=== PATIENT | female | born 1945 | race Caucasian/White ===

== ENCOUNTER 2021-02-03 07:54 | Emergency (ER) | payer MEDICARE ==
[2021-02-03 08:14] VITALS: PULSE 83
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
[2021-02-03 08:55] LABS: ANION GAP 14.2 mEq/L (7-13)
[2021-02-03] MEDS ORDERED: Ondansetron 4 MG/2 ML SDV IVPUSH ONE (08:58)
[2021-02-03] MEDS ORDERED: Pantoprazole 40 MG Vial IVPUSH ONE (09:02)
[2021-02-03] MEDS ORDERED: Pantoprazole 40 MG in Sodium Chloride 0.9% 100 ML IV SCH ×4 (09:15)
[2021-02-03 09:26] VITALS: BP 162/86
== END 2021-02-03 10:09 ==
LOC: DL.ED 07:54
DX: K92.2 Gastrointestinal hemorrhage, unspecified (principal); J44.9 Chronic obstructive pulmonary disease, unspecified; I12.9 Hypertensive chronic kidney disease with stage 1 through stage 4 chronic kidney disease, or unspecified chronic kidney disease; N18.9 Chronic kidney disease, unspecified; E66.9 Obesity, unspecified; Z68.41 Body mass index [BMI] 40.0-44.9, adult; Z86.73 Personal history of transient ischemic attack (TIA), and cerebral infarction without residual deficits; Z79.02 Long term (current) use of antithrombotics/antiplatelets; Z79.899 Other long term (current) drug therapy; Z88.1 Allergy status to other antibiotic agents; Z88.8 Allergy status to other drugs, medicaments and biological substances; Z88.0 Allergy status to penicillin; Z20.822 Contact with and (suspected) exposure to COVID-19
CPT/HCPCS: 36415; 80053; 82150; 82272; 83605; 83690; 83735; 84443; 85025; 86140; 93005; 96365; 96375; 99285; C9113; J2405; U0002

== ENCOUNTER 2021-02-07 07:54 | Inpatient (IN) | payer MEDICARE ==
[2021-02-07 14:13] LABS: ANION GAP 14.7 mEq/L (7-13)
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
[2021-02-08] MEDS: Nystatin Topical Powder 30 GM Bottle TOP SCH ×3 (01:13→20:40)
[2021-02-08] MEDS ORDERED: Pantoprazole 40 MG Tab.CR **OWN MED PO SCH (06:00)
[2021-02-08] MEDS ORDERED: Potassium Chloride 10 MEQ Tab.ER **OWN MED PO SCH (08:00)
[2021-02-08] MEDS ORDERED: TRIAMTERENE HCTZ PO SCH (09:00)
[2021-02-08] MEDS ORDERED: Clopidogrel 75 MG Tab **OWN MED PO SCH (09:00)
[2021-02-08] MEDS ORDERED: Pantoprazole 40 MG Tab.CR PO SCH (09:02)
[2021-02-08] MEDS ORDERED: Hydrochlorothiazide/Triamterene 25-37.5 Tab PO SCH (09:03)
[2021-02-08] MEDS ORDERED: Clopidogrel 75 MG Tab PO SCH ×2 (09:04→10:00)
[2021-02-08] MEDS ORDERED: Potassium Chloride 10 MEQ Tab.ER PO SCH (09:05)
[2021-02-08] MEDS: Acetaminophen 500 MG Tab PO PRN (09:57)
[2021-02-08] MEDS: Carboxymethylcellulose Sodium 1% Ophth Gel 0.4 ML UD EYEBOTH SCH ×2 (09:58→20:39)
[2021-02-08] MEDS: Cholecalciferol (Vitamin D3) 25 MCG Tab PO SCH (09:58)
[2021-02-08] MEDS: Furosemide 40 MG Tab PO SCH (09:59)
[2021-02-08] MEDS: Potassium Chloride 10 MEQ Tab.ER PO SCH ×2 (10:03→17:13)
[2021-02-08] MEDS: Hydrochlorothiazide/Triamterene 25-37.5 Tab PO SCH (10:04)
[2021-02-08 10:40] LABS: ANION GAP 12.7 mEq/L (7-13)
[2021-02-08] MEDS ORDERED: Albuterol/Ipratropium 3.0-0.5 MG/3 ML Neb Soln INH PRN (12:00)
[2021-02-08] MEDS: Clopidogrel 75 MG Tab PO SCH (12:26)
[2021-02-09] MEDS: Acetaminophen 500 MG Tab PO PRN ×3 (00:46→20:33)
[2021-02-09] MEDS: Pantoprazole 40 MG Tab.CR PO SCH (05:26)
[2021-02-09] MEDS: Furosemide 40 MG Tab PO SCH (08:54)
[2021-02-09] MEDS: Fluticasone Propionate Nasal Spray 16 GM Bottle NASBOTH SCH (08:54)
[2021-02-09] MEDS: Hydrochlorothiazide/Triamterene 25-37.5 Tab PO SCH (08:54)
[2021-02-09] MEDS: Carboxymethylcellulose Sodium 1% Ophth Gel 0.4 ML UD EYEBOTH SCH ×2 (08:55→20:09)
[2021-02-09] MEDS: Cholecalciferol (Vitamin D3) 25 MCG Tab PO SCH (08:56)
[2021-02-09] MEDS: Potassium Chloride 10 MEQ Tab.ER PO SCH ×2 (08:56→17:41)
[2021-02-09] MEDS: Aspirin 81 MG Tab.EC PO SCH (08:56)
[2021-02-09] MEDS: Nystatin Topical Powder 30 GM Bottle TOP SCH ×2 (08:57→20:10)
[2021-02-09 09:13] LABS: ANION GAP 12.6 mEq/L (7-13)
[2021-02-09] MEDS: Clopidogrel 75 MG Tab PO SCH (12:21)
--- NOTE | 2021-02-09 12:21 | MR ---
PROCEDURE INFORMATION: Exam: MRA Head Without Contrast; Arteriography Exam date and time: 02/09/2021 10:09 AM Age: 75 years old Clinical indication: Weakness; Additional info: Recent stroke, unknown etiology TECHNIQUE: Imaging protocol: Magnetic resonance angiography head without contrast. Exam focused on the arteries. COMPARISON: No relevant prior studies available. FINDINGS: ANTERIOR CIRCULATION: Right internal carotid artery: Intracranial segment is patent with no significant stenosis. No aneurysm. Right middle cerebral artery: No occlusion or significant stenosis. No aneurysm. Right anterior cerebral artery: No occlusion or significant stenosis. No aneurysm. Left internal carotid artery: Intracranial segment is patent with no significant stenosis. No aneurysm. Left middle cerebral artery: No occlusion or significant stenosis. No aneurysm. Left anterior cerebral artery: No occlusion or significant stenosis. No aneurysm. POSTERIOR CIRCULATION: Right vertebral artery: No occlusion or significant stenosis. No aneurysm. Left vertebral artery: No occlusion or significant stenosis. No aneurysm. Basilar artery: No occlusion or significant stenosis. No aneurysm. Patent superior cerebellar arteries. Bilateral anterior inferior cerebellar arteries are present and appear to be dominant inferior cerebellar arteries. AICA is duplicated on left. Right posterior cerebral artery: No occlusion or significant stenosis. No aneurysm. Left posterior cerebral artery: No occlusion or significant stenosis. No aneurysm. IMPRESSION: No intracranial vascular stenosis or occlusion.
--- NOTE | 2021-02-09 12:22 | MR ---
PROCEDURE INFORMATION: Exam: MR Head Without Contrast Exam date and time: 02/09/2021 10:09 AM Age: 75 years old Clinical indication: Walking, difficulty; Additional info: Stroke TECHNIQUE: Imaging protocol: MR of the head without contrast. COMPARISON: No relevant prior studies available. FINDINGS: Brain: There is 9 mm rounded extra-axial mass in the left frontal vertex consistent with meningioma. No edema in adjacent brain. Small low FLAIR and high T2 area approximately 2 mm in left cerebellar white matter may be old infarct. The ventricles and sulci are proportionally enlarged, consistent with volume loss / atrophy. There is T2 prolongation in the cerebral white matter, consistent with microvascular disease. Man white differentiation is intact. Diffusion weighted images show no restricted diffusion or evidence of acute infarct. There is no mass effect or midline shift. There is no acute intracranial hemorrhage. There are no extra-axial fluid collections. Cerebral ventricles: Normal. No ventriculomegaly. Bones/joints: Unremarkable as visualized. Paranasal sinuses: Normal as visualized. No acute sinusitis. Mastoid air cells: No significant mastoid effusion. Orbital cavity: Unremarkable. Soft tissues: Unremarkable as visualized. Other vasculature: Flow voids in main vascular structures are visualized. IMPRESSION: 1. No evidence of acute intracranial abnormality. No evidence of acute infarction, or hemorrhage. 2. Small left frontal meningioma. 3. Atrophy and microvascular disease. 4. Given the patient's clinical history and / or findings on MRI, MRA to assess the intracranial vascular system would be appropriate.
[2021-02-09] MEDS ORDERED: Ketorolac 30 MG/ML SDV IM ONE (15:15)
[2021-02-09] MEDS ORDERED: Menthol/Methyl Salicylate 85 GM Tube TOP PRN (21:11)
[2021-02-10] MEDS: Pantoprazole 40 MG Tab.CR PO SCH ×2 (04:00→05:48)
[2021-02-10] MEDS: Acetaminophen 500 MG Tab PO PRN ×2 (04:00→10:34)
[2021-02-10 08:46] LABS: HEMOGLOBIN A1C 5.9 % (<5.7)
[2021-02-10 08:52] LABS: ANION GAP 11.7 mEq/L (7-13)
--- NOTE | 2021-02-10 09:43 | PCM.PN ---
- General Info Date of Service: 02/08/21 Admission Dx/Problem (Free Text): Admission Diagnosis/Problem Admission Diagnosis/Problem Weakness Subjective Update: Cathryn was admitted yesterday for failure to thrive at home, and severe mobility limitations. After admitting her, and doing full evaluations with both myself, nursing and physical therapy, it is very clear that Cathryn will be in the hospital here for quite a length of time. She has had an obvious stroke, causing a right-sided facial droop, for which we do not have any etiology. Cathryn tells me that she has multiple TIAs, and that she never went to the hospital for this one that caused her facial droop. Nursing reports that she has been unable to take care of most of her ADLs, is really not even able to transfer to the commode - Patient Data Vitals - Most Recent: Last Vital Signs Temp 97.8 F 02/10/21 02:36 Pulse 109 H 02/10/21 02:36 Resp 20 02/10/21 02:36 BP 119/83 02/10/21 02:36 Pulse Ox 94 L 02/10/21 02:36 Weight - Most Recent: 241 lb 9.6 oz I&O - Last 24 Hours: Intake & Output 02/09/21 02/10/21 02/10/21 22:59 06:59 14:59 Intake Total 480 100 Balance 480 100 Lab Results Last 24 Hours: Laboratory Results - last 24 hr 02/10/21 02/10/21 02/10/21 Range/Units 08:27 08:27 08:27 WBC 14.0 H (5.0-10.0) 10^3/uL RBC 4.79 (4.2-5.4) 10^6/uL Hgb 14.4 (12.0-16.0) g/dL Hct 45.4 (37.0-47.0) % MCV 94.8 (80-100) fL MCH 30.1 (27.0-34.0) pg MCHC 31.7 L (33.0-35.0) g/dL Plt Count 410 (150-450) 10^3/uL Neut % (Auto) 70.4 (42.2-75.2) % Lymph % (Auto) 17.0 L (20.5-50.1) % [place] % (Auto) 9.6 H (2-8) % Eos % (Auto) 2.6 (1.0-3.0) % Baso % (Auto) 0.4 (0.0-1.0) % Add Manual Diff Sodium 140 (136-145) mmol/L Potassium 3.7 (3.5-5.1) mmol/L Chloride 99 (98-107) mmol/L Carbon Dioxide 33 H (21-32) mmol/L Anion Gap 11.7 (7-13) mEq/L BUN 24 H (7-18) mg/dL Creatinine 1.25 H (0.55-1.02) mg/dL Est Cr Clr Drug Dosing 27.93 mL/min Estimated GFR (MDRD) 42 BUN/Creatinine Ratio 19.2 (No establ ref range) Glucose 107 H (70-99) mg/dL Hemoglobin A1c 5.9 H (<5.7) % Calcium 9.3 (8.5-10.1) mg/dL Total Bilirubin 1.4 H (0.2-1.0) mg/dL AST 26 (15-37) U/L ALT 33 (14-59) U/L Alkaline Phosphatase 96 (46-116) U/L Total Protein 7.4 (6.4-8.2) g/dL Albumin 2.5 L (3.4-5.0) g/dL Globulin 4.9 Albumin/Globulin Ratio 0.51 Med Orders - Current: Current Medications Acetaminophen (Acetaminophen 500 Mg Tab) 500 mg PO Q6H PRN PRN Reason: Pain (mild 1-3) Last Admin: 02/10/21 04:00 Dose: 500 mg Documented by: Albuterol/Ipratropium (Albuterol/Ipratropium 3.0-0.5 Mg/3 Ml Neb Soln) 3 ml INH Q4HR PRN PRN Reason: Wheezing Artificial Tears (Carboxymethylcellulose Sodium 1% Ophth Gel 0.4 Ml Ud) 0 each EYEBOTH BID [facility] Last Admin: 02/09/21 20:09 Dose: 1 each Documented by: Aspirin (Aspirin 81 Mg Tab.Ec) 81 mg PO WITHBREAKFAST [facility] Last Admin: 02/09/21 08:56 Dose: 81 mg Documented by: Cholecalciferol (Cholecalciferol (Vitamin D3) 25 Mcg Tab) 25 mcg PO DAILY [facility] Last Admin: 02/09/21 08:56 Dose: 25 mcg Documented by: Clopidogrel Bisulfate (Clopidogrel 75 Mg Tab) 75 mg PO DAILY@1200 [facility] Last Admin: 02/09/21 12:21 Dose: 75 mg Documented by: Fluticasone Propionate (Fluticasone Propionate Nasal [place] 16 Gm Bottle) 0 gm NASBOTH DAILY [facility] Last Admin: 02/09/21 08:54 Dose: 2 spray Documented by: Furosemide (Furosemide 40 Mg Tab) 40 mg PO DAILY [facility] Last Admin: 02/09/21 08:54 Dose: 40 mg Documented by: Influenza Virus Vaccine (Pharmacy To Dose - Influenza Vaccine) 1 each IM DAILY [facility] Last Admin: 02/09/21 08:56 Dose: Not Given Documented by: Methyl Salicylate (Menthol/Methyl Salicylate 85 Gm Tube) 0 gm TOP QID PRN PRN Reason: Pain (mild 1-3) Last Admin: 02/09/21 21:45 Dose: 1 applic Documented by: Nystatin (Nystatin Topical Powder 30 Gm Bottle) 0 gm TOP BID [facility] Last Admin: 02/09/21 20:10 Dose: 1 applic Documented by: Pantoprazole Sodium (Pantoprazole 40 Mg Tab.Cr) 40 mg PO ACBREAKFAST [facility] Last Admin: 02/10/21 05:48 Dose: Not Given Documented by: Potassium Chloride (Potassium Chloride 10 Meq Tab.Er) 10 meq PO BIDMEALS [facility] Last Admin: 02/09/21 17:41 Dose: 10 meq Documented by: Triamterene/Hydrochlorothiazide (Hydrochlorothiazide/Triamterene 25-37.5 Tab) 1 each PO DAILY [facility] Last Admin: 02/09/21 08:54 Dose: 1 each Documented by: Discontinued Medications Clopidogrel Bisulfate (Clopidogrel 75 Mg Tab Own Med) 75 mg PO DAILY [facility] Last Admin: 02/08/21 10:56 Dose: Not Given Documented by: Clopidogrel Bisulfate (Clopidogrel 75 Mg Tab) 75 mg PO DAILY [facility] Clopidogrel Bisulfate (Clopidogrel 75 Mg Tab) 75 mg PO DAILY [facility] Last Admin: 02/08/21 10:57 Dose: Not Given Documented by: Ketorolac Tromethamine (Ketorolac 30 Mg/Ml Sdv) 30 mg IM ONETIME ONE Stop: 02/09/21 15:16 Triamterene-Hctz 37. 5-25 Caps Own Med 1 cap PO DAILY [facility] Last Admin: 02/08/21 10:56 Dose: Not Given Documented by: Pantoprazole Sodium (Pantoprazole 40 Mg Tab.Cr Own Med) 40 mg PO ACBREAKFAST [facility] Last Admin: 02/08/21 05:43 Dose: 40 mg Documented by: Pantoprazole Sodium (Pantoprazole 40 Mg Tab.Cr) 40 mg PO ACBREAKFAST [facility] Potassium Chloride (Potassium Chloride 10 Meq Tab.Er Own Med) 10 meq PO BIDMEALS [facility] Last Admin: 02/08/21 10:55 Dose: Not Given Documented by: Potassium Chloride (Potassium Chloride 10 Meq Tab.Er) 10 meq PO BIDMEALS [facility] Triamterene/Hydrochlorothiazide (Hydrochlorothiazide/Triamterene 25-37.5 Tab) 1 each PO DAILY [facility] - Exam Physical Findings Comments:: General: Cathryn is a 75-year-old woman in no acute distress Oropharynx is clear, mucous membranes are moist Heart: Regular rate and rhythm, 1 out of 6 systolic murmur Lungs: Clear to auscultation throughout She has still that flattened nasolabial fold on the right with drooping of the right eyelid. The movement of her lower extremities and upper extremities is symmetrical although I would put her for strength at 4 out of 5 - Patient Data Lab Results Last 24 hrs: Laboratory Results - last 24 hr 02/10/21 02/10/21 02/10/21 Range/Units 08:27 08:27 08:27 WBC 14.0 H (5.0-10.0) 10^3/uL RBC 4.79 (4.2-5.4) 10^6/uL Hgb 14.4 (12.0-16.0) g/dL Hct 45.4 (37.0-47.0) % MCV 94.8 (80-100) fL MCH 30.1 (27.0-34.0) pg MCHC 31.7 L (33.0-35.0) g/dL Plt Count 410 (150-450) 10^3/uL Neut % (Auto) 70.4 (42.2-75.2) % Lymph % (Auto) 17.0 L (20.5-50.1) % [place] % (Auto) 9.6 H (2-8) % Eos % (Auto) 2.6 (1.0-3.0) % Baso % (Auto) 0.4 (0.0-1.0) % Add Manual Diff Sodium 140 (136-145) mmol/L Potassium 3.7 (3.5-5.1) mmol/L Chloride 99 (98-107) mmol/L Carbon Dioxide 33 H (21-32) mmol/L Anion Gap 11.7 (7-13) mEq/L BUN 24 H (7-18) mg/dL Creatinine 1.25 H (0.55-1.02) mg/dL Est Cr Clr Drug Dosing 27.93 mL/min Estimated GFR (MDRD) 42 BUN/Creatinine Ratio 19.2 (No establ ref range) Glucose 107 H (70-99) mg/dL Hemoglobin A1c 5.9 H (<5.7) % Calcium 9.3 (8.5-10.1) mg/dL Total Bilirubin 1.4 H (0.2-1.0) mg/dL AST 26 (15-37) U/L ALT 33 (14-59) U/L Alkaline Phosphatase 96 (46-116) U/L Total Protein 7.4 (6.4-8.2) g/dL Albumin 2.5 L (3.4-5.0) g/dL Globulin 4.9 Albumin/Globulin Ratio 0.51 Result Diagrams: 02/10/21 08:27 02/10/21 08:27 Sepsis Event Note - Evaluation Sepsis Screening Result: No Definite Risk - Focused Exam Vital Signs: Vital Signs Temp Pulse Resp BP Pulse Ox 02/10/21 02:36 97.8 F 109 H 20 119/83 94 L - Problem List & Annotations (1) Cerebrovascular accident (CVA) SNOMED Code(s): 467487306 Code(s): I63.9 - CEREBRAL INFARCTION, UNSPECIFIED Status: Acute Current Visit: Yes Qualifiers: CVA mechanism: unspecified Qualified Code(s): I63.9 - Cerebral infarction, unspecified Annotation/Comment:: Recent CVA, unknown age (2) COPD (chronic obstructive pulmonary disease) SNOMED Code(s): 37109828 Code(s): J44.9 - CHRONIC OBSTRUCTIVE PULMONARY DISEASE, UNSPECIFIED Status: Acute Current Visit: Yes (3) Essential hypertension SNOMED Code(s): 65395560 Code(s): I10 - ESSENTIAL (PRIMARY) HYPERTENSION Status: Acute Current Visit: Yes (4) Failure to thrive in adult SNOMED Code(s): 145217310 Code(s): R62.7 - ADULT FAILURE TO THRIVE Status: Acute Current Visit: Yes - Problem List Review Problem List Initiated/Reviewed/Updated: Yes - My Orders Last 24 Hours: My Active Orders 02/09/21 09:00 Fluticasone Propionate [Flonase] 0 gm NASBOTH DAILY 02/09/21 21:11 Menthol/Methyl Salicylate [Icy Hot Cream] See Dose Instructions TOP QID PRN - Plan Plan:: Assessment/Plan: 1. 75-year-old woman with severe mobility issues, and failure to thrive 2. Obvious recent cerebrovascular accident -MRI/MRA of the head scheduled for the -Until we can get a full stroke work-up on her, we will do dual antiplatelet therapy with aspirin and Plavix -Physical therapy as soon as possible to start getting her mobilized 3. Chronic obstructive pulmonary disease -Continue home medications 4. Numerous ecchymosis and skin lesions, secondary to failure to thrive and poor mobility -As above, nursing has done a full skin survey on her, they will keep a very close watch on any areas that seem to be breaking down 5. VTE prophylaxis: We will have her on dual antiplatelet therapy, will consider starting her on Lovenox prophylactic dose 6. Due to her ongoing needs, she will be discharged today from observation, and admitted to acute inpatient status
--- NOTE | 2021-02-10 09:47 | PCM.PN ---
- General Info Date of Service: 02/09/21 Admission Dx/Problem (Free Text): Admission Diagnosis/Problem Admission Diagnosis/Problem Weakness Subjective Update: Cathryn is doing well this morning. Have not made much progress in getting her moving. She was declining physical therapy quite a bit yesterday, because of severe anxiety. She has a fear that she will fall. She told us this morning "it feels like my left is not talking to my right", which sounds like she is having a lot of coordination and balance issues. MRI/MRA scheduled for today - Patient Data Vitals - Most Recent: Last Vital Signs Temp 97.8 F 02/10/21 02:36 Pulse 109 H 02/10/21 02:36 Resp 20 02/10/21 02:36 BP 119/83 02/10/21 02:36 Pulse Ox 94 L 02/10/21 02:36 Weight - Most Recent: 241 lb 9.6 oz I&O - Last 24 Hours: Intake & Output 02/09/21 02/10/21 02/10/21 22:59 06:59 14:59 Intake Total 480 100 Balance 480 100 Lab Results Last 24 Hours: Laboratory Results - last 24 hr 02/10/21 02/10/21 02/10/21 Range/Units 08:27 08:27 08:27 WBC 14.0 H (5.0-10.0) 10^3/uL RBC 4.79 (4.2-5.4) 10^6/uL Hgb 14.4 (12.0-16.0) g/dL Hct 45.4 (37.0-47.0) % MCV 94.8 (80-100) fL MCH 30.1 (27.0-34.0) pg MCHC 31.7 L (33.0-35.0) g/dL Plt Count 410 (150-450) 10^3/uL Neut % (Auto) 70.4 (42.2-75.2) % Lymph % (Auto) 17.0 L (20.5-50.1) % [place] % (Auto) 9.6 H (2-8) % Eos % (Auto) 2.6 (1.0-3.0) % Baso % (Auto) 0.4 (0.0-1.0) % Add Manual Diff Sodium 140 (136-145) mmol/L Potassium 3.7 (3.5-5.1) mmol/L Chloride 99 (98-107) mmol/L Carbon Dioxide 33 H (21-32) mmol/L Anion Gap 11.7 (7-13) mEq/L BUN 24 H (7-18) mg/dL Creatinine 1.25 H (0.55-1.02) mg/dL Est Cr Clr Drug Dosing 27.93 mL/min Estimated GFR (MDRD) 42 BUN/Creatinine Ratio 19.2 (No establ ref range) Glucose 107 H (70-99) mg/dL Hemoglobin A1c 5.9 H (<5.7) % Calcium 9.3 (8.5-10.1) mg/dL Total Bilirubin 1.4 H (0.2-1.0) mg/dL AST 26 (15-37) U/L ALT 33 (14-59) U/L Alkaline Phosphatase 96 (46-116) U/L Total Protein 7.4 (6.4-8.2) g/dL Albumin 2.5 L (3.4-5.0) g/dL Globulin 4.9 Albumin/Globulin Ratio 0.51 Med Orders - Current: Current Medications Acetaminophen (Acetaminophen 500 Mg Tab) 500 mg PO Q6H PRN PRN Reason: Pain (mild 1-3) Last Admin: 02/10/21 04:00 Dose: 500 mg Documented by: Albuterol/Ipratropium (Albuterol/Ipratropium 3.0-0.5 Mg/3 Ml Neb Soln) 3 ml INH Q4HR PRN PRN Reason: Wheezing Artificial Tears (Carboxymethylcellulose Sodium 1% Ophth Gel 0.4 Ml Ud) 0 each EYEBOTH BID [facility] Last Admin: 02/09/21 20:09 Dose: 1 each Documented by: Aspirin (Aspirin 81 Mg Tab.Ec) 81 mg PO WITHBREAKFAST [facility] Last Admin: 02/09/21 08:56 Dose: 81 mg Documented by: Cholecalciferol (Cholecalciferol (Vitamin D3) 25 Mcg Tab) 25 mcg PO DAILY [facility] Last Admin: 02/09/21 08:56 Dose: 25 mcg Documented by: Clopidogrel Bisulfate (Clopidogrel 75 Mg Tab) 75 mg PO DAILY@1200 [facility] Last Admin: 02/09/21 12:21 Dose: 75 mg Documented by: Fluticasone Propionate (Fluticasone Propionate Nasal [place] 16 Gm Bottle) 0 gm NASBOTH DAILY [facility] Last Admin: 02/09/21 08:54 Dose: 2 spray Documented by: Furosemide (Furosemide 40 Mg Tab) 40 mg PO DAILY [facility] Last Admin: 02/09/21 08:54 Dose: 40 mg Documented by: Influenza Virus Vaccine (Pharmacy To Dose - Influenza Vaccine) 1 each IM DAILY [facility] Last Admin: 02/09/21 08:56 Dose: Not Given Documented by: Methyl Salicylate (Menthol/Methyl Salicylate 85 Gm Tube) 0 gm TOP QID PRN PRN Reason: Pain (mild 1-3) Last Admin: 02/09/21 21:45 Dose: 1 applic Documented by: Nystatin (Nystatin Topical Powder 30 Gm Bottle) 0 gm TOP BID [facility] Last Admin: 02/09/21 20:10 Dose: 1 applic Documented by: Pantoprazole Sodium (Pantoprazole 40 Mg Tab.Cr) 40 mg PO ACBREAKFAST [facility] Last Admin: 02/10/21 05:48 Dose: Not Given Documented by: Potassium Chloride (Potassium Chloride 10 Meq Tab.Er) 10 meq PO BIDMEALS [facility] Last Admin: 02/09/21 17:41 Dose: 10 meq Documented by: Triamterene/Hydrochlorothiazide (Hydrochlorothiazide/Triamterene 25-37.5 Tab) 1 each PO DAILY [facility] Last Admin: 02/09/21 08:54 Dose: 1 each Documented by: Discontinued Medications Clopidogrel Bisulfate (Clopidogrel 75 Mg Tab Own Med) 75 mg PO DAILY [facility] Last Admin: 02/08/21 10:56 Dose: Not Given Documented by: Clopidogrel Bisulfate (Clopidogrel 75 Mg Tab) 75 mg PO DAILY [facility] Clopidogrel Bisulfate (Clopidogrel 75 Mg Tab) 75 mg PO DAILY [facility] Last Admin: 02/08/21 10:57 Dose: Not Given Documented by: Ketorolac Tromethamine (Ketorolac 30 Mg/Ml Sdv) 30 mg IM ONETIME ONE Stop: 02/09/21 15:16 Triamterene-Hctz 37. 5-25 Caps Own Med 1 cap PO DAILY [facility] Last Admin: 02/08/21 10:56 Dose: Not Given Documented by: Pantoprazole Sodium (Pantoprazole 40 Mg Tab.Cr Own Med) 40 mg PO ACBREAKFAST [facility] Last Admin: 02/08/21 05:43 Dose: 40 mg Documented by: Pantoprazole Sodium (Pantoprazole 40 Mg Tab.Cr) 40 mg PO ACBREAKFAST [facility] Potassium Chloride (Potassium Chloride 10 Meq Tab.Er Own Med) 10 meq PO BIDMEALS [facility] Last Admin: 02/08/21 10:55 Dose: Not Given Documented by: Potassium Chloride (Potassium Chloride 10 Meq Tab.Er) 10 meq PO BIDMEALS [facility] Triamterene/Hydrochlorothiazide (Hydrochlorothiazide/Triamterene 25-37.5 Tab) 1 each PO DAILY [facility] - Exam Physical Findings Comments:: General: Cathryn is a 75-year-old woman in no acute distress Oropharynx is clear, mucous membranes are moist The facial droop as previously described is stable Neck: Supple, no lymphadenopathy Heart: Regular rate and rhythm, 1 out of 6 systolic murmur Lungs: Clear to auscultation throughout - Patient Data Lab Results Last 24 hrs: Laboratory Results - last 24 hr 02/10/21 02/10/21 02/10/21 Range/Units 08:27 08:27 08:27 WBC 14.0 H (5.0-10.0) 10^3/uL RBC 4.79 (4.2-5.4) 10^6/uL Hgb 14.4 (12.0-16.0) g/dL Hct 45.4 (37.0-47.0) % MCV 94.8 (80-100) fL MCH 30.1 (27.0-34.0) pg MCHC 31.7 L (33.0-35.0) g/dL Plt Count 410 (150-450) 10^3/uL Neut % (Auto) 70.4 (42.2-75.2) % Lymph % (Auto) 17.0 L (20.5-50.1) % [place] % (Auto) 9.6 H (2-8) % Eos % (Auto) 2.6 (1.0-3.0) % Baso % (Auto) 0.4 (0.0-1.0) % Add Manual Diff Sodium 140 (136-145) mmol/L Potassium 3.7 (3.5-5.1) mmol/L Chloride 99 (98-107) mmol/L Carbon Dioxide 33 H (21-32) mmol/L Anion Gap 11.7 (7-13) mEq/L BUN 24 H (7-18) mg/dL Creatinine 1.25 H (0.55-1.02) mg/dL Est Cr Clr Drug Dosing 27.93 mL/min Estimated GFR (MDRD) 42 BUN/Creatinine Ratio 19.2 (No establ ref range) Glucose 107 H (70-99) mg/dL Hemoglobin A1c 5.9 H (<5.7) % Calcium 9.3 (8.5-10.1) mg/dL Total Bilirubin 1.4 H (0.2-1.0) mg/dL AST 26 (15-37) U/L ALT 33 (14-59) U/L Alkaline Phosphatase 96 (46-116) U/L Total Protein 7.4 (6.4-8.2) g/dL Albumin 2.5 L (3.4-5.0) g/dL Globulin 4.9 Albumin/Globulin Ratio 0.51 Result Diagrams: 02/10/21 08:27 02/10/21 08:27 Sepsis Event Note - Evaluation Sepsis Screening Result: No Definite Risk - Focused Exam Vital Signs: Vital Signs Temp Pulse Resp BP Pulse Ox 02/10/21 02:36 97.8 F 109 H 20 119/83 94 L - Problem List & Annotations (1) Cerebrovascular accident (CVA) SNOMED Code(s): 357825033 Code(s): I63.9 - CEREBRAL INFARCTION, UNSPECIFIED Status: Acute Current Visit: Yes Qualifiers: CVA mechanism: unspecified Qualified Code(s): I63.9 - Cerebral infarction, unspecified Annotation/Comment:: Recent CVA, unknown age (2) COPD (chronic obstructive pulmonary disease) SNOMED Code(s): 43509010 Code(s): J44.9 - CHRONIC OBSTRUCTIVE PULMONARY DISEASE, UNSPECIFIED Status: Acute Current Visit: Yes (3) Essential hypertension SNOMED Code(s): 69977644 Code(s): I10 - ESSENTIAL (PRIMARY) HYPERTENSION Status: Acute Current Visit: Yes (4) Failure to thrive in adult SNOMED Code(s): 233885337 Code(s): R62.7 - ADULT FAILURE TO THRIVE Status: Acute Current Visit: Yes - Problem List Review Problem List Initiated/Reviewed/Updated: Yes - My Orders Last 24 Hours: My Active Orders 02/09/21 09:00 Fluticasone Propionate [Flonase] 0 gm NASBOTH DAILY 02/09/21 21:11 Menthol/Methyl Salicylate [Icy Hot Cream] See Dose Instructions TOP QID PRN - Plan Plan:: Assessment/Plan: 1. 75-year-old woman with severe mobility issues, and failure to thrive 2. Obvious recent cerebrovascular accident -MRI/MRA of the head scheduled for today -Continue dual antiplatelet therapy with Plavix and aspirin -Physical therapy will continue to work with her to try to get her transferring herself and mobilized 3. Chronic obstructive pulmonary disease -Continue home medications 4. Numerous ecchymosis and skin lesions, secondary to failure to thrive and poor mobility -As above, nursing has done a full skin survey on her, they will keep a very close watch on any areas that seem to be breaking down 5. VTE prophylaxis: We will have her on dual antiplatelet therapy, will consider starting her on Lovenox prophylactic dose
--- NOTE | 2021-02-10 09:48 | PCM.PN ---
- General Info Date of Service: 02/10/21 Admission Dx/Problem (Free Text): Admission Diagnosis/Problem Admission Diagnosis/Problem Weakness Subjective Update: Cathryn is overall stable. Physical therapy reports they were able to do a little bit of toe-touch and transferring yesterday, but have not made much headway yet. Nursing reports that they are assisting her with 100% of her ADLs. MRI/MRA of the brain yesterday showed small older infarct in the left cereb ellum, which would explain quite a bit of her balance and stability issues - Patient Data Vitals - Most Recent: Last Vital Signs Temp 97.8 F 02/10/21 02:36 Pulse 109 H 02/10/21 02:36 Resp 20 02/10/21 02:36 BP 119/83 02/10/21 02:36 Pulse Ox 94 L 02/10/21 02:36 Weight - Most Recent: 241 lb 9.6 oz I&O - Last 24 Hours: Intake & Output 02/09/21 02/10/21 02/10/21 22:59 06:59 14:59 Intake Total 480 100 Balance 480 100 Lab Results Last 24 Hours: Laboratory Results - last 24 hr 02/10/21 02/10/21 02/10/21 Range/Units 08:27 08:27 08:27 WBC 14.0 H (5.0-10.0) 10^3/uL RBC 4.79 (4.2-5.4) 10^6/uL Hgb 14.4 (12.0-16.0) g/dL Hct 45.4 (37.0-47.0) % MCV 94.8 (80-100) fL MCH 30.1 (27.0-34.0) pg MCHC 31.7 L (33.0-35.0) g/dL Plt Count 410 (150-450) 10^3/uL Neut % (Auto) 70.4 (42.2-75.2) % Lymph % (Auto) 17.0 L (20.5-50.1) % Riley % (Auto) 9.6 H (2-8) % Eos % (Auto) 2.6 (1.0-3.0) % Baso % (Auto) 0.4 (0.0-1.0) % Add Manual Diff Sodium 140 (136-145) mmol/L Potassium 3.7 (3.5-5.1) mmol/L Chloride 99 (98-107) mmol/L Carbon Dioxide 33 H (21-32) mmol/L Anion Gap 11.7 (7-13) mEq/L BUN 24 H (7-18) mg/dL Creatinine 1.25 H (0.55-1.02) mg/dL Est Cr Clr Drug Dosing 27.93 mL/min Estimated GFR (MDRD) 42 BUN/Creatinine Ratio 19.2 (No establ ref range) Glucose 107 H (70-99) mg/dL Hemoglobin A1c 5.9 H (<5.7) % Calcium 9.3 (8.5-10.1) mg/dL Total Bilirubin 1.4 H (0.2-1.0) mg/dL AST 26 (15-37) U/L ALT 33 (14-59) U/L Alkaline Phosphatase 96 (46-116) U/L Total Protein 7.4 (6.4-8.2) g/dL Albumin 2.5 L (3.4-5.0) g/dL Globulin 4.9 Albumin/Globulin Ratio 0.51 Med Orders - Current: Current Medications Acetaminophen (Acetaminophen 500 Mg Tab) 500 mg PO Q6H PRN PRN Reason: Pain (mild 1-3) Last Admin: 02/10/21 04:00 Dose: 500 mg Documented by: Albuterol/Ipratropium (Albuterol/Ipratropium 3.0-0.5 Mg/3 Ml Neb Soln) 3 ml INH Q4HR PRN PRN Reason: Wheezing Artificial Tears (Carboxymethylcellulose Sodium 1% Ophth Gel 0.4 Ml Ud) 0 each EYEBOTH BID [facility] Last Admin: 02/09/21 20:09 Dose: 1 each Documented by: Aspirin (Aspirin 81 Mg Tab.Ec) 81 mg PO WITHBREAKFAST [facility] Last Admin: 02/09/21 08:56 Dose: 81 mg Documented by: Cholecalciferol (Cholecalciferol (Vitamin D3) 25 Mcg Tab) 25 mcg PO DAILY [facility] Last Admin: 02/09/21 08:56 Dose: 25 mcg Documented by: Clopidogrel Bisulfate (Clopidogrel 75 Mg Tab) 75 mg PO DAILY@1200 [facility] Last Admin: 02/09/21 12:21 Dose: 75 mg Documented by: Fluticasone Propionate (Fluticasone Propionate Nasal [place] 16 Gm Bottle) 0 gm NASBOTH DAILY [facility] Last Admin: 02/09/21 08:54 Dose: 2 spray Documented by: Furosemide (Furosemide 40 Mg Tab) 40 mg PO DAILY [facility] Last Admin: 02/09/21 08:54 Dose: 40 mg Documented by: Influenza Virus Vaccine (Pharmacy To Dose - Influenza Vaccine) 1 each IM DAILY [facility] Last Admin: 02/09/21 08:56 Dose: Not Given Documented by: Methyl Salicylate (Menthol/Methyl Salicylate 85 Gm Tube) 0 gm TOP QID PRN PRN Reason: Pain (mild 1-3) Last Admin: 02/09/21 21:45 Dose: 1 applic Documented by: Nystatin (Nystatin Topical Powder 30 Gm Bottle) 0 gm TOP BID [facility] Last Admin: 02/09/21 20:10 Dose: 1 applic Documented by: Pantoprazole Sodium (Pantoprazole 40 Mg Tab.Cr) 40 mg PO ACBREAKFAST [facility] Last Admin: 02/10/21 05:48 Dose: Not Given Documented by: Potassium Chloride (Potassium Chloride 10 Meq Tab.Er) 10 meq PO BIDMEALS [facility] Last Admin: 02/09/21 17:41 Dose: 10 meq Documented by: Triamterene/Hydrochlorothiazide (Hydrochlorothiazide/Triamterene 25-37.5 Tab) 1 each PO DAILY [facility] Last Admin: 02/09/21 08:54 Dose: 1 each Documented by: Discontinued Medications Clopidogrel Bisulfate (Clopidogrel 75 Mg Tab Own Med) 75 mg PO DAILY [facility] Last Admin: 02/08/21 10:56 Dose: Not Given Documented by: Clopidogrel Bisulfate (Clopidogrel 75 Mg Tab) 75 mg PO DAILY [facility] Clopidogrel Bisulfate (Clopidogrel 75 Mg Tab) 75 mg PO DAILY [facility] Last Admin: 02/08/21 10:57 Dose: Not Given Documented by: Ketorolac Tromethamine (Ketorolac 30 Mg/Ml Sdv) 30 mg IM ONETIME ONE Stop: 02/09/21 15:16 Triamterene-Hctz 37. 5-25 Caps Own Med 1 cap PO DAILY [facility] Last Admin: 02/08/21 10:56 Dose: Not Given Documented by: Pantoprazole Sodium (Pantoprazole 40 Mg Tab.Cr Own Med) 40 mg PO ACBREAKFAST [facility] Last Admin: 02/08/21 05:43 Dose: 40 mg Documented by: Pantoprazole Sodium (Pantoprazole 40 Mg Tab.Cr) 40 mg PO ACBREAKFAST [facility] Potassium Chloride (Potassium Chloride 10 Meq Tab.Er Own Med) 10 meq PO BIDMEALS [facility] Last Admin: 02/08/21 10:55 Dose: Not Given Documented by: Potassium Chloride (Potassium Chloride 10 Meq Tab.Er) 10 meq PO BIDMEALS [facility] Triamterene/Hydrochlorothiazide (Hydrochlorothiazide/Triamterene 25-37.5 Tab) 1 each PO DAILY [facility] - Exam Physical Findings Comments:: General: Cathryn is a 75-year-old woman in no acute distress Oropharynx is clear, mucous membranes are moist Neck: Supple, no lymphadenopathy Heart: Regular rate and rhythm, 1 out of 6 systolic murmur Lungs: Clear to auscultation throughout Extremities: The edema from 2 days ago has resolved, she is moving her extremities well - Patient Data Lab Results Last 24 hrs: Laboratory Results - last 24 hr 02/10/21 02/10/21 02/10/21 Range/Units 08:27 08:27 08:27 WBC 14.0 H (5.0-10.0) 10^3/uL RBC 4.79 (4.2-5.4) 10^6/uL Hgb 14.4 (12.0-16.0) g/dL Hct 45.4 (37.0-47.0) % MCV 94.8 (80-100) fL MCH 30.1 (27.0-34.0) pg MCHC 31.7 L (33.0-35.0) g/dL Plt Count 410 (150-450) 10^3/uL Neut % (Auto) 70.4 (42.2-75.2) % Lymph % (Auto) 17.0 L (20.5-50.1) % Riley % (Auto) 9.6 H (2-8) % Eos % (Auto) 2.6 (1.0-3.0) % Baso % (Auto) 0.4 (0.0-1.0) % Add Manual Diff Sodium 140 (136-145) mmol/L Potassium 3.7 (3.5-5.1) mmol/L Chloride 99 (98-107) mmol/L Carbon Dioxide 33 H (21-32) mmol/L Anion Gap 11.7 (7-13) mEq/L BUN 24 H (7-18) mg/dL Creatinine 1.25 H (0.55-1.02) mg/dL Est Cr Clr Drug Dosing 27.93 mL/min Estimated GFR (MDRD) 42 BUN/Creatinine Ratio 19.2 (No establ ref range) Glucose 107 H (70-99) mg/dL Hemoglobin A1c 5.9 H (<5.7) % Calcium 9.3 (8.5-10.1) mg/dL Total Bilirubin 1.4 H (0.2-1.0) mg/dL AST 26 (15-37) U/L ALT 33 (14-59) U/L Alkaline Phosphatase 96 (46-116) U/L Total Protein 7.4 (6.4-8.2) g/dL Albumin 2.5 L (3.4-5.0) g/dL Globulin 4.9 Albumin/Globulin Ratio 0.51 Result Diagrams: 02/10/21 08:27 02/10/21 08:27 Sepsis Event Note - Evaluation Sepsis Screening Result: No Definite Risk - Focused Exam Vital Signs: Vital Signs Temp Pulse Resp BP Pulse Ox 02/10/21 02:36 97.8 F 109 H 20 119/83 94 L - Problem List & Annotations (1) Cerebrovascular accident (CVA) SNOMED Code(s): 545188681 Code(s): I63.9 - CEREBRAL INFARCTION, UNSPECIFIED Status: Acute Current Visit: Yes Qualifiers: CVA mechanism: unspecified Qualified Code(s): I63.9 - Cerebral infarction, unspecified Annotation/Comment:: Recent CVA, unknown age (2) COPD (chronic obstructive pulmonary disease) SNOMED Code(s): 09954696 Code(s): J44.9 - CHRONIC OBSTRUCTIVE PULMONARY DISEASE, UNSPECIFIED Status: Acute Current Visit: Yes (3) Essential hypertension SNOMED Code(s): 70203475 Code(s): I10 - ESSENTIAL (PRIMARY) HYPERTENSION Status: Acute Current V isit: Yes (4) Failure to thrive in adult SNOMED Code(s): 039455099 Code(s): R62.7 - ADULT FAILURE TO THRIVE Status: Acute Current Visit: Yes - Problem List Review Problem List Initiated/Reviewed/Updated: Yes - My Orders Last 24 Hours: My Active Orders 02/09/21 09:00 Fluticasone Propionate [Flonase] 0 gm NASBOTH DAILY 02/09/21 21:11 Menthol/Methyl Salicylate [Icy Hot Cream] See Dose Instructions TOP QID PRN - Plan Plan:: Assessment/Plan: 1. 75-year-old woman with severe mobility issues, and failure to thrive 2. Obvious recent cerebrovascular accident -MRI/MRA showed no imminent concerns, old left cerebellar infarct -Continue dual antiplatelet therapy with Plavix and aspirin -Physical therapy will continue to work with her to try to get her transferring herself and mobilized 3. Chronic obstructive pulmonary disease -Continue home medications 4. Numerous ecchymosis and skin lesions, secondary to failure to thrive and poor mobility -As above, nursing has done a full skin survey on her, they will keep a very close watch on any areas that seem to be breaking down 5. VTE prophylaxis: We will have her on dual antiplatelet therapy, will consider starting her on Lovenox prophylactic dose 6. Chronic kidney disease, her baseline GFR appears to be between 40 and 50, which would make her stage III -Even with her GFR close to 40, her triamterene/hydrochlorothiazide still seems to be controlling her blood pressure well. 7. Impaired glucose tolerance -A1c 5.9
[2021-02-10] MEDS: Aspirin 81 MG Tab.EC PO SCH (10:34)
[2021-02-10] MEDS: Furosemide 40 MG Tab PO SCH (10:34)
[2021-02-10] MEDS: Cholecalciferol (Vitamin D3) 25 MCG Tab PO SCH (10:34)
[2021-02-10] MEDS: Potassium Chloride 10 MEQ Tab.ER PO SCH ×2 (10:34→17:57)
[2021-02-10] MEDS: Hydrochlorothiazide/Triamterene 25-37.5 Tab PO SCH (10:35)
[2021-02-10] MEDS: Carboxymethylcellulose Sodium 1% Ophth Gel 0.4 ML UD EYEBOTH SCH (10:36)
[2021-02-10] MEDS: Fluticasone Propionate Nasal Spray 16 GM Bottle NASBOTH SCH (10:36)
[2021-02-10] MEDS: Nystatin Topical Powder 30 GM Bottle TOP SCH (10:37)
[2021-02-10] MEDS: Clopidogrel 75 MG Tab PO SCH (13:20)
[2021-02-11] MEDS: Nystatin Topical Powder 30 GM Bottle TOP SCH ×2 (00:14→09:04)
[2021-02-11] MEDS: Carboxymethylcellulose Sodium 1% Ophth Gel 0.4 ML UD EYEBOTH SCH ×2 (00:16→09:04)
[2021-02-11] MEDS: Pantoprazole 40 MG Tab.CR PO SCH (05:44)
[2021-02-11] MEDS: Hydrochlorothiazide/Triamterene 25-37.5 Tab PO SCH (08:59)
[2021-02-11] MEDS: Cholecalciferol (Vitamin D3) 25 MCG Tab PO SCH (08:59)
[2021-02-11] MEDS: Furosemide 40 MG Tab PO SCH (09:00)
[2021-02-11] MEDS: Potassium Chloride 10 MEQ Tab.ER PO SCH (09:00)
[2021-02-11] MEDS: Aspirin 81 MG Tab.EC PO SCH (09:00)
[2021-02-11] MEDS: Acetaminophen 500 MG Tab PO PRN (09:02)
[2021-02-11] MEDS: Fluticasone Propionate Nasal Spray 16 GM Bottle NASBOTH SCH (09:02)
[2021-02-11] MEDS: Clopidogrel 75 MG Tab PO SCH (11:59)
[2021-02-11 12:21] VITALS: BP 125/86; PULSE 114
--- NOTE | 2021-02-11 14:43 | PCM.DCSUM1 ---
Discharge Summary - Hospital Course Free Text/Narrative:: 1. 75-year-old woman with h/o htn, copd presented with generalized weakness, inability to get out of bed and take care of herself 2. weakness likely multifactorial due to morbid obesity, deconditioning, old cerebellar cvam, will transfer to swing bed for furhter pt ot 3. old cva MRI showed no cute cva on this admission MRA showed no stenosis add statin cont asa and plavix for 21 days then plavix alone control bp, follow BS 4. Numerous ecchymosis and skin lesions, secondary to failure to thrive and poor mobility, anti-Platelet meds 5 . Chronic kidney disease III follow periodically 6. Impaired glucose tolerance in the setting of morbid obesity -A1c 5.9 follow periodically 7. Leukocytosis in swing bed recommend checking UA/ Cx Diagnosis: Stroke: No - Discharge Data Discharge Date: 02/11/21 Discharge Disposition: DC/Tfer W/I Hosp To Swing Condition: Fair - Referral to Home Health Primary Care Physician: PCP None - Discharge Diagnosis/Problem(s) (1) Weakness SNOMED Code(s): 71034874 ICD Code: R53.1 - WEAKNESS Status: Acute Current Visit: Yes (2) COPD (chronic obstructive pulmonary disease) SNOMED Code(s): 77689515 ICD Code: J44.9 - CHRONIC OBSTRUCTIVE PULMONARY DISEASE, UNSPECIFIED Status: Acute Current Visit: Yes (3) Essential hypertension SNOMED Code(s): 75091044 ICD Code: I10 - ESSENTIAL (PRIMARY) HYPERTENSION Status: Acute Current Visit: Yes (4) Failure to thrive in adult SNOMED Code(s): 610657400 ICD Code: R62.7 - ADULT FAILURE TO THRIVE Status: Acute Current Visit: Yes - Patient Summary/Data Consults: Consultations 02/08/21 08:38 Consult to Occupational Therapy [OT Evaluation and Treatment] [CONS] Routine Consult to Physical Therapy [PT Evaluation and Treatment] [CONS] Routine - Patient Instructions Diet: Regular Diet as Tolerated Activity: As Tolerated - Discharge Plan *PRESCRIPTION DRUG MONITORING PROGRAM REVIEWED*: Not Applicable *COPY OF PRESCRIPTION DRUG MONITORING REPORT IN PATIENT PRADEEP: Not Applicable Prescriptions/Med Rec: atorvaSTATin Calcium [Lipitor] 40 mg PO .QHS #30 tablet Home Medications: Home Meds Albuterol/Ipratropium [Combivent Respimat] 2 puff INH Q4HR PRN 04/30/15 [History] Calcium Carbonate/Vitamin D3 [Calcium 600 + Vit D 400] 1 tab PO BIDMEALS 08/12/14 [History] Glucosamine/D3/Boswellia [place] [Osteo Bi-Flex Caplet] 1 cap PO BID 08/12/14 [History] LORazepam [Ativan] 0.5 mg PO BID PRN 08/12/14 [History] Triamterene/Hydrochlorothiazid [Triamterene-HCTZ 37.5-25 MG] 1 cap PO DAILY 08/12/14 [History] Simethicone [Gas-X] 125 mg PO BID PRN 08/04/15 [History] Acetaminophen [Tylenol Extra Strength] 1,000 mg PO Q8H PRN 12/19/15 [History] Carboxymethylcellulose Sodium [Refresh Celluvisc] 1 each EYEBOTH BID PRN 12/19/15 [History] Mometasone Furoate [Nasonex] 2 spray NASBOTH DAILY PRN 12/19/15 [History] Oxygen 2 liter INH BEDTIME PRN 12/19/15 [History] Potassium Chloride [Klor-Con 10] 10 meq PO BIDMEALS 12/19/15 [History] Cholecalciferol (Vitamin D3) [Vitamin D3] 1,000 unit PO DAILY 02/07/21 [History] Metaxalone [Skelaxin] 800 mg PO TID PRN 02/07/21 [History] Pantoprazole Sodium [Protonix] 40 mg PO DAILY 02/07/21 [History] Clopidogrel [Plavix] 75 mg PO WITHLUNCH 02/10/21 [History] Aspirin [Halfprin] 81 mg PO WITHBREAKFAST tab.ec 02/11/21 [Rx] Furosemide [Lasix] 40 mg PO DAILY tablet 02/11/21 [Rx] Polyvinyl Alcohol [LiquiTears 1.4% Ophth Soln] 0 ml EYEBOTH BID bottle 02/11/21 [Rx] atorvaSTATin Calcium [Lipitor] 40 mg PO .QHS #30 tablet 02/11/21 [Rx] - Discharge Summary/Plan Comment DC Time >30 min.: No Total # of Minutes for Discharge Time: 25 - General Info Date of Service: 02/11/21 Functional Status: Reports: Pain Controlled, Tolerating Diet. Denies: Ambulating - Review of Systems General: Reports: Weakness Pulmonary: Denies: Shortness of Breath Gastrointestinal: Denies: Abdominal Pain Genitourinary: Reports: Dysuria Neurological: Denies: Confusion - Patient Data Vitals - Most Recent: Last Vital Signs Temp 97.0 F 02/11/21 12:00 Pulse 114 H 02/11/21 12:00 Resp 18 02/11/21 12:00 BP 125/86 02/11/21 12:00 Pulse Ox 93 L 02/11/21 12:00 Weight - Most Recent: 92799 lb I&O - Last 24 hours: Intake & Output 02/10/21 02/11/21 02/11/21 22:59 06:59 14:59 Intake Total 440 Output Total 650 Balance 440 -650 Med Orders - Current: Current Medications Acetaminophen (Acetaminophen 500 Mg Tab) 500 mg PO Q6H PRN PRN Reason: Pain (mild 1-3) Last Admin: 02/11/21 09:02 Dose: 500 mg Documented by: Albuterol/Ipratropium (Albuterol/Ipratropium 3.0-0.5 Mg/3 Ml Neb Soln) 3 ml INH Q4HR PRN PRN Reason: Wheezing Artificial Tears (Polyvinyl Alcohol 1.4% Ophth Soln 15 Ml Bottle) 0 ml EYEBOTH BID [facility] Aspirin (Aspirin 81 Mg Tab.Ec) 81 mg PO WITHBREAKFAST [facility] Last Admin: 02/11/21 09:00 Dose: 81 mg Documented by: Cholecalciferol (Cholecalciferol (Vitamin D3) 25 Mcg Tab) 25 mcg PO DAILY [facility] Last Admin: 02/11/21 08:59 Dose: 25 mcg Documented by: Clopidogrel Bisulfate (Clopidogrel 75 Mg Tab) 75 mg PO DAILY@1200 [facility] Last Admin: 02/11/21 11:59 Dose: 75 mg Documented by: Fluticasone Propionate (Fluticasone Propionate Nasal [place] 16 Gm Bottle) 0 gm NASBOTH DAILY [facility] Last Admin: 02/11/21 09:02 Dose: 2 spray Documented by: Furosemide (Furosemide 40 Mg Tab) 40 mg PO DAILY [facility] Last Admin: 02/11/21 09:00 Dose: 40 mg Documented by: Influenza Virus Vaccine (Pharmacy To Dose - Influenza Vaccine) 1 each IM DAILY [facility] Last Admin: 02/10/21 10:36 Dose: Not Given Documented by: Methyl Salicylate (Menthol/Methyl Salicylate 85 Gm Tube) 0 gm TOP QID PRN PRN Reason: Pain (mild 1-3) Last Admin: 02/09/21 21:45 Dose: 1 applic Documented by: Nystatin (Nystatin Topical Powder 30 Gm Bottle) 0 gm TOP BID [facility] Last Admin: 02/11/21 09:04 Dose: 1 applic Documented by: Pantoprazole Sodium (Pantoprazole 40 Mg Tab.Cr) 40 mg PO ACBREAKFAST [facility] Last Admin: 02/11/21 05:44 Dose: 40 mg Documented by: Potassium Chloride (Potassium Chloride 10 Meq Tab.Er) 10 meq PO BIDMEALS [facility] Last Admin: 02/11/21 09:00 Dose: 10 meq Documented by: Triamterene/Hydrochlorothiazide (Hydrochlorothiazide/Triamterene 25-37.5 Tab) 1 each PO DAILY [facility] Last Admin: 02/11/21 08:59 Dose: 1 each Documented by: Discontinued Medications Artificial Tears (Carboxymethylcellulose Sodium 1% Ophth Gel 0.4 Ml Ud) 0 each EYEBOTH BID [facility] Last Admin: 02/11/21 09:04 Dose: 1 each Documented by: Clopidogrel Bisulfate (Clopidogrel 75 Mg Tab Own Med) 75 mg PO DAILY [facility] Last Admin: 02/08/21 10:56 Dose: Not Given Documented by: Clopidogrel Bisulfate (Clopidogrel 75 Mg Tab) 75 mg PO DAILY [facility] Clopidogrel Bisulfate (Clopidogrel 75 Mg Tab) 75 mg PO DAILY [facility] Last Admin: 02/08/21 10:57 Dose: Not Given Documented by: Influenza Virus Vaccine (Flu Vacc Ut0011-15(65yr Up)/Pf 240 Mcg/0.7 Ml Syringe) 240 mcg IM .ONCE ONE Stop: 02/11/21 12:37 Last Admin: 02/11/21 12:47 Dose: 240 mcg Documented by: Ketorolac Tromethamine (Ketorolac 30 Mg/Ml Sdv) 30 mg IM ONETIME ONE Stop: 02/09/21 15:16 Last Admin: 02/10/21 10:33 Dose: Not Given Documented by: Triamterene-Hctz 37. 5-25 Caps Own Med 1 cap PO DAILY [facility] Last Admin: 02/08/21 10:56 Dose: Not Given Documented by: Pantoprazole Sodium (Pantoprazole 40 Mg Tab.Cr Own Med) 40 mg PO ACBREAKFAST [facility] Last Admin: 02/08/21 05:43 Dose: 40 mg Documented by: Pantoprazole Sodium (Pantoprazole 40 Mg Tab.Cr) 40 mg PO ACBREAKFAST [facility] Potassium Chloride (Potassium Chloride 10 Meq Tab.Er Own Med) 10 meq PO BIDMEALS [facility] Last Admin: 02/08/21 10:55 Dose: Not Given Documented by: Potassium Chloride (Potassium Chloride 10 Meq Tab.Er) 10 meq PO BIDMEALS [facility] Triamterene/Hydrochlorothiazide (Hydrochlorothiazide/Triamterene 25-37.5 Tab) 1 each PO DAILY [facility] - Exam General: Reports: Alert, Oriented Lungs: Reports: Clear to Auscultation, Normal Respiratory Effort Cardiovascular: Reports: Regular Rate, Regular Rhythm GI/Abdominal Exam: Normal Bowel Sounds, Soft, Other (morbidly obese) Extremities: Pedal Edema (trace b/l) Skin: Reports: Warm Psy/Mental Status: Reports: Alert, Normal Affect, Normal Mood
[2021-02-11] MEDS ORDERED: Polyvinyl Alcohol 1.4% Ophth Soln 15 ML Bottle EYEBOTH SCH (21:00)
== END 2021-02-11 14:34 | disposition swing bed (61) | DRG 948 ==
LOC: DL.MS 07:54 → OBSVTOIN 02-08 07:54
PROVIDERS: ADMIT Family Medicine; ATTEND Internal Medicine
DX: R53.81 Other malaise (principal); I10 Essential (primary) hypertension; Z68.45 Body mass index [BMI] 70 or greater, adult; R62.7 Adult failure to thrive; L98.8 Other specified disorders of the skin and subcutaneous tissue; R53.1 Weakness; I69.392 Facial weakness following cerebral infarction; J44.9 Chronic obstructive pulmonary disease, unspecified; D72.829 Elevated white blood cell count, unspecified; R73.02 Impaired glucose tolerance (oral); N18.30 Chronic kidney disease, stage 3 unspecified; R58 Hemorrhage, not elsewhere classified; L98.9 Disorder of the skin and subcutaneous tissue, unspecified; Z20.822 Contact with and (suspected) exposure to COVID-19; F32.9 Major depressive disorder, single episode, unspecified; I12.9 Hypertensive chronic kidney disease with stage 1 through stage 4 chronic kidney disease, or unspecified chronic kidney disease; E66.9 Obesity, unspecified; K21.9 Gastro-esophageal reflux disease without esophagitis; R91.8 Other nonspecific abnormal finding of lung field; K44.9 Diaphragmatic hernia without obstruction or gangrene; E66.01 Morbid (severe) obesity due to excess calories; M19.90 Unspecified osteoarthritis, unspecified site; M06.9 Rheumatoid arthritis, unspecified; F41.9 Anxiety disorder, unspecified; F32.A Depression, unspecified; Z86.73 Personal history of transient ischemic attack (TIA), and cerebral infarction without residual deficits; R15.9 Full incontinence of feces; R32 Unspecified urinary incontinence; M79.7 Fibromyalgia; Z88.1 Allergy status to other antibiotic agents; Z88.0 Allergy status to penicillin; Z79.899 Other long term (current) drug therapy; I25.2 Old myocardial infarction; Z85.828 Personal history of other malignant neoplasm of skin; Z23 Encounter for immunization; Z88.8 Allergy status to other drugs, medicaments and biological substances; Z79.02 Long term (current) use of antithrombotics/antiplatelets; Z99.81 Dependence on supplemental oxygen
CPT/HCPCS: 36415; 80053; 83735; 84100; 84484; 85025; A9270 ×2; G0378 ×3; U0002; 70544; 70551; 83036; 90662; 97161-GP; 97166-GO; 97530-GO; 97530-GP; G0008

== ENCOUNTER 2021-02-11 10:34 | Inpatient (IN) | payer MEDICARE ==
[2021-02-11] MEDS ORDERED: Non-Formulary Medication 1 Each (Albuterol/Ipratropium [Combivent Respimat] 4 GM Inhaler) INH PRN (15:19)
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
[2021-02-11] MEDS ORDERED: Temazepam 15 MG Cap PO PRN (15:47)
[2021-02-11] MEDS: Calcium Carbonate/Vitamin D3 1250 MG-5 MCG Tab PO SCH (16:59)
[2021-02-11] MEDS: Potassium Chloride 10 MEQ Tab.ER PO SCH (16:59)
[2021-02-11] MEDS: Acetaminophen 500 MG Tab PO PRN (17:00)
[2021-02-11] MEDS: Polyvinyl Alcohol 1.4% Ophth Soln 15 ML Bottle EYEBOTH SCH (21:01)
[2021-02-11] MEDS: atorvaSTATin 20 MG Tab PO SCH (21:01)
[2021-02-11] MEDS: Heparin Sodium 5,000 Units/ML Vial SUBCUT SCH (21:01)
[2021-02-12] MEDS: Heparin Sodium 5,000 Units/ML Vial SUBCUT SCH ×3 (05:30→21:04)
[2021-02-12] MEDS: Pantoprazole 40 MG Tab.CR PO SCH (05:30)
[2021-02-12 07:07] LABS: ANION GAP 11.3 mEq/L (7-13)
[2021-02-12] MEDS: Calcium Carbonate/Vitamin D3 1250 MG-5 MCG Tab PO SCH ×2 (08:54→17:07)
[2021-02-12] MEDS: Furosemide 40 MG Tab PO SCH (08:54)
[2021-02-12] MEDS: Potassium Chloride 10 MEQ Tab.ER PO SCH ×2 (08:54→17:10)
[2021-02-12] MEDS: Aspirin 81 MG Tab.EC PO SCH (08:54)
[2021-02-12] MEDS: Hydrochlorothiazide/Triamterene 25-37.5 Tab PO SCH (08:54)
[2021-02-12] MEDS: Polyvinyl Alcohol 1.4% Ophth Soln 15 ML Bottle EYEBOTH SCH ×2 (08:55→20:39)
[2021-02-12] MEDS: Acetaminophen 500 MG Tab PO PRN (09:03)
[2021-02-12] MEDS: LORazepam 0.5 MG Tab PO PRN (09:47)
[2021-02-12] MEDS: Ondansetron 4 MG Tab.DIS PO PRN (10:45)
[2021-02-12] MEDS ORDERED: Potassium Chloride 10 MEQ Tab.ER PO ONE (13:00)
[2021-02-12] MEDS: Clopidogrel 75 MG Tab PO SCH (14:33)
[2021-02-12] MEDS: atorvaSTATin 20 MG Tab PO SCH (20:39)
[2021-02-13] MEDS: Pantoprazole 40 MG Tab.CR PO SCH (05:12)
[2021-02-13] MEDS: Heparin Sodium 5,000 Units/ML Vial SUBCUT SCH ×3 (05:12→22:05)
[2021-02-13 06:18] LABS: ANION GAP 13.4 mEq/L (7-13)
[2021-02-13] MEDS: Hydrochlorothiazide/Triamterene 25-37.5 Tab PO SCH (09:02)
[2021-02-13] MEDS: Potassium Chloride 10 MEQ Tab.ER PO SCH (09:02)
[2021-02-13] MEDS: Furosemide 40 MG Tab PO SCH (09:02)
[2021-02-13] MEDS: Aspirin 81 MG Tab.EC PO SCH (09:02)
[2021-02-13] MEDS: Calcium Carbonate/Vitamin D3 1250 MG-5 MCG Tab PO SCH ×2 (09:02→17:45)
[2021-02-13] MEDS: Polyvinyl Alcohol 1.4% Ophth Soln 15 ML Bottle EYEBOTH SCH ×2 (09:03→21:56)
[2021-02-13] MEDS: Acetaminophen 500 MG Tab PO PRN (09:04)
--- NOTE | 2021-02-13 09:59 | CR ---
PROCEDURE INFORMATION: Exam: XR Chest Exam date and time: 02/13/2021 9:36 AM Age: 75 years old Clinical indication: Other: Leukocytosis TECHNIQUE: Imaging protocol: XR of the chest. Views: 1 view. COMPARISON: CR Chest 1V Frontal 08/05/2015 7:43 AM FINDINGS: Lungs: Normal silvestre. Normal pulmonary vascularity. No segmental infiltrate. Intervally resolved prior LLL infitrate from 08/05/2015. Pleural spaces: No pleural effusion. No pneumothorax. Heart/Mediastinum: Normal heart. Normal mediastinum and aorta. Bones/joints: Mild scoliosis. No focal bony lesions. IMPRESSION: 1. Negative CXR for acute cardiopulmonary process. 2. Intervally resolved prior LLL infiltrate from 2016 exam.
--- NOTE | 2021-02-13 11:58 | PCM.PN ---
- General Info Date of Service: 02/13/21 Subjective Update: feeling ok no fever or chills, no sob has c/o cough and secretions - mostly in AM no associated cp Functional Status: Reports: Tolerating Diet - Review of Systems General: Denies: Fever Cardiovascular: Denies: Chest Pain, Edema Gastrointestinal: Denies: Abdominal Pain, Diarrhea Neurological: Denies: Confusion - Patient Data Vitals - Most Recent: Last Vital Signs Temp 97.0 F 02/13/21 07:41 Pulse 102 H 02/13/21 07:41 Resp 18 02/12/21 19:39 BP 129/76 02/13/21 07:41 Pulse Ox 94 L 02/12/21 19:39 Weight - Most Recent: 241 lb 9.6 oz I&O - Last 24 Hours: Intake & Output 02/12/21 02/13/21 02/13/21 22:59 06:59 14:59 Intake Total 200 Balance 200 Lab Results Last 24 Hours: Laboratory Results - last 24 hr 02/13/21 02/13/21 Range/Units 05:50 05:50 WBC 15.1 H (5.0-10.0) 10^3/uL RBC 5.04 (4.2-5.4) 10^6/uL Hgb 15.1 (12.0-16.0) g/dL Hct 47.9 H (37.0-47.0) % MCV 95.0 (80-100) fL MCH 30.0 (27.0-34.0) pg MCHC 31.5 L (33.0-35.0) g/dL Plt Count 466 H (150-450) 10^3/uL Neut % (Auto) 69.6 (42.2-75.2) % Lymph % (Auto) 16.7 L (20.5-50.1) % Cocke % (Auto) 10.7 H (2-8) % Eos % (Auto) 2.5 (1.0-3.0) % Baso % (Auto) 0.5 (0.0-1.0) % Add Manual Diff Yes Neutrophils % (Manual) 69 (42-75) % Lymphocytes % (Manual) 19 L (20-50) % Monocytes % (Manual) 6 (2-8) % Eosinophils % (Manual) 3 (1-3) % Basophils % (Manual) 1 Myelocytes % 2 Sodium 139 (136-145) mmol/L Potassium 3.4 L (3.5-5.1) mmol/L Chloride 97 L (98-107) mmol/L Carbon Dioxide 32 (21-32) mmol/L Anion Gap 13.4 H (7-13) mEq/L BUN 39 H (7-18) mg/dL Creatinine 1.56 H (0.55-1.02) mg/dL Est Cr Clr Drug Dosing 22.38 mL/min Estimated GFR (MDRD) 32 Glucose 126 H (70-99) mg/dL Calcium 9.3 (8.5-10.1) mg/dL Jose Results Last 24 Hours: Microbiology 02/11/21 14:15 Urine Culture - Final Urine, Clean Catch Med Orders - Current: Current Medications Acetaminophen (Acetaminophen 325 Mg Tab) 650 mg PO Q4H PRN PRN Reason: Pain (Mild 1-3)/fever Albuterol/Ipratropium (Albuterol/Ipratropium 3.0-0.5 Mg/3 Ml Neb Soln) 3 ml NEB Q2H PRN PRN Reason: sob Artificial Tears (Polyvinyl Alcohol 1.4% Ophth Soln 15 Ml Bottle) 0 ml EYEBOTH BID [facility] Last Admin: 02/13/21 09:03 Dose: 1 drop Documented by: Aspirin (Aspirin 81 Mg Tab.Ec) 81 mg PO WITHBREAKFAST [facility] Last Admin: 02/13/21 09:02 Dose: 81 mg Documented by: Atorvastatin Calcium (Atorvastatin 20 Mg Tab) 40 mg PO BEDTIME [facility] Last Admin: 02/12/21 20:39 Dose: 40 mg Documented by: Calcium Carbonate (Calcium Carbonate/Vitamin D3 1250 Mg-5 Mcg Tab) 1 tab PO BIDMEALS [facility] Last Admin: 02/13/21 09:02 Dose: 1 tab Documented by: Clopidogrel Bisulfate (Clopidogrel 75 Mg Tab) 75 mg PO WITHLUNCH [facility] Last Admin: 02/12/21 14:33 Dose: 75 mg Documented by: Docusate Sodium (Docusate Sodium 100 Mg Cap) 100 mg PO BID PRN PRN Reason: Constipation Furosemide (Furosemide 40 Mg Tab) 40 mg PO DAILY [facility] Last Admin: 02/13/21 09:02 Dose: 40 mg Documented by: Heparin Sodium (Porcine) (Heparin Sodium 5,000 Units/Ml Vial) 5,000 units SUBCUT Q8HR [facility] Last Admin: 02/13/21 05:12 Dose: 5,000 units Documented by: Lorazepam (Lorazepam 0.5 Mg Tab) 0.5 mg PO BID PRN PRN Reason: Anxiety Last Admin: 02/12/21 09:47 Dose: 0.5 mg Documented by: Ondansetron HCl (Ondansetron 4 Mg Tab.Dis) 4 mg PO Q4H PRN PRN Reason: nausea, able to take PO Last Admin: 02/12/21 10:45 Dose: 4 mg Documented by: Pantoprazole Sodium (Pantoprazole 40 Mg Tab.Cr) 40 mg PO ACBRK [facility] Last Admin: 02/13/21 05:12 Dose: 40 mg Documented by: Potassium Chloride (Potassium Chloride 10 Meq Tab.Er) 20 meq PO BIDMEALS [facility] Potassium Chloride (Potassium Chloride 10 Meq Tab.Er) 40 meq PO ONETIME ONE Stop: 02/13/21 16:01 Temazepam (Temazepam 15 Mg Cap) 15 mg PO BEDTIME PRN PRN Reason: Sleep Triamterene/Hydrochlorothiazide (Hydrochlorothiazide/Triamterene 25-37.5 Tab) 1 each PO DAILY [facility] Last Admin: 02/13/21 09:02 Dose: 1 each Documented by: Discontinued Medications Acetaminophen (Acetaminophen 500 Mg Tab) 1,000 mg PO Q8H PRN PRN Reason: Pain (mild 1-3) Last Admin: 02/13/21 09:04 Dose: 1,000 mg Documented by: Non-Formulary Medication (Albuterol/Ipratropium [Combivent Respimat]) 2 puff INH Q4HR PRN PRN Reason: Wheezing Potassium Chloride (Potassium Chloride 10 Meq Tab.Er) 10 meq PO BIDMEALS [facility] Last Admin: 02/13/21 09:02 Dose: 10 meq Documented by: Potassium Chloride (Potassium Chloride 10 Meq Tab.Er) 40 meq PO ONETIME ONE Stop: 02/12/21 13:01 Last Admin: 02/12/21 14:33 Dose: 40 meq Documented by: - Exam General: Alert, Oriented Lungs: Normal Respiratory Effort, Decreased Breath Sounds Cardiovascular: Regular Rate, Regular Rhythm GI/Abdominal Exam: Normal Bowel Sounds, Soft, Non-Tender, Other (morbidly obese) Extremities: Pedal Edema (trace) - Patient Data Lab Results Last 24 hrs: Laboratory Results - last 24 hr 02/13/21 02/13/21 Range/Units 05:50 05:50 WBC 15.1 H (5.0-10.0) 10^3/uL RBC 5.04 (4.2-5.4) 10^6/uL Hgb 15.1 (12.0-16.0) g/dL Hct 47.9 H (37.0-47.0) % MCV 95.0 (80-100) fL MCH 30.0 (27.0-34.0) pg MCHC 31.5 L (33.0-35.0) g/dL Plt Count 466 H (150-450) 10^3/uL Neut % (Auto) 69.6 (42.2-75.2) % Lymph % (Auto) 16.7 L (20.5-50.1) % Cocke % (Auto) 10.7 H (2-8) % Eos % (Auto) 2.5 (1.0-3.0) % Baso % (Auto) 0.5 (0.0-1.0) % Add Manual Diff Yes Neutrophils % (Manual) 69 (42-75) % Lymphocytes % (Manual) 19 L (20-50) % Monocytes % (Manual) 6 (2-8) % Eosinophils % (Manual) 3 (1-3) % Basophils % (Manual) 1 Myelocytes % 2 Sodium 139 (136-145) mmol/L Potassium 3.4 L (3.5-5.1) mmol/L Chloride 97 L (98-107) mmol/L Carbon Dioxide 32 (21-32) mmol/L Anion Gap 13.4 H (7-13) mEq/L BUN 39 H (7-18) mg/dL Creatinine 1.56 H (0.55-1.02) mg/dL Est Cr Clr Drug Dosing 22.38 mL/min Estimated GFR (MDRD) 32 Glucose 126 H (70-99) mg/dL Calcium 9.3 (8.5-10.1) mg/dL Result Diagrams: 02/13/21 05:50 02/13/21 05:50 Jose Results Last 24 hrs: Microbiology 02/11/21 14:15 Urine Culture - Final Urine, Clean Catch Sepsis Event Note - Evaluation Sepsis Screening Result: No Definite Risk - Focused Exam Vital Signs: Vital Signs Temp Pulse BP 02/13/21 07:41 97.0 F 102 H 129/76 - Problem List & Annotations (1) COPD (chronic obstructive pulmonary disease) SNOMED Code(s): 95058905 Code(s): J44.9 - CHRONIC OBSTRUCTIVE PULMONARY DISEASE, UNSPECIFIED Status: Acute Current Visit: No (2) Cerebrovascular accident (CVA) SNOMED Code(s): 430481525 Code(s): I63.9 - CEREBRAL INFARCTION, UNSPECIFIED Status: Acute Current Visit: No Qualifiers: Annotation/Comment:: Recent CVA, unknown age (3) Essential hypertension SNOMED Code(s): 66607370 Code(s): I10 - ESSENTIAL (PRIMARY) HYPERTENSION Status: Acute Current Visit: No (4) Weakness SNOMED Code(s): 81207858 Code(s): R53.1 - WEAKNESS Status: Acute Current Visit: No (5) Leukocytosis SNOMED Code(s): 868025903, 460023296 Code(s): D72.829 - ELEVATED WHITE BLOOD CELL COUNT, UNSPECIFIED Status: Acute Current Visit: No - Problem List Review Problem List Initiated/Reviewed/Updated: Yes - My Orders Last 24 Hours: My Active Orders 02/12/21 12:00 Clopidogrel [Plavix] 75 mg PO WITHLUNCH 02/12/21 12:39 Albuterol/Ipratropium [DuoNeb 3.0-0.5 MG/3 ML] 3 ml NEB Q2H PRN 02/12/21 12:40 RT Aerosol Therapy [RC] .PRN 02/13/21 09:28 Blood Culture x2 Reflex Set [OM.PC] Stat 02/13/21 09:48 CULTURE BLOOD [BC] Stat 02/13/21 09:53 CULTURE BLOOD [BC] Stat 02/13/21 11:46 OT Evaluation and Treatment [CONS] Routine PT Evaluation and Treatment [CONS] Routine 02/13/21 16:00 Potassium Chloride [Klor-Con 10] 40 meq PO ONETIME ONE 02/14/21 05:15 BASIC METABOLIC PANEL,BMP [CHEM] AM CBC WITH AUTO DIFF [HEME] AM 02/14/21 08:00 Potassium Chloride [Klor-Con 10] 20 meq PO BIDMEALS - Plan Plan:: 1. 75-year-old woman with h/o htn, copd presented with generalized weakness, inability to get out of bed and take care of herself 2. 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 old cva MRI showed no cute cva on this admission MRA showed no stenosis cont statin cont asa and plavix for 21 days then plavix alone control bp, follow BS 4. Numerous ecchymosis and skin lesions, secondary to failure to thrive and poor mobility, anti-Platelet meds 5 . Chronic kidney disease III follow periodically 6. Impaired glucose tolerance in the setting of morbid obesity -A1c 5.9 follow periodically 7. Leukocytosis negative UA/ Cx I obtained cxr: no infiltrate obtained Blood cx: pending c/o cough, secretions in am - likely bronchitis start azithromycin
[2021-02-13] MEDS ORDERED: Azithromycin 250 MG Tab PO ONE (12:30)
[2021-02-13] MEDS: Clopidogrel 75 MG Tab PO SCH (12:37)
[2021-02-13] MEDS ORDERED: Potassium Chloride 10 MEQ Tab.ER PO ONE (16:00)
[2021-02-13] MEDS: Simethicone 80 MG Tab.Chew PO PRN (17:45)
[2021-02-13] MEDS: Ondansetron 4 MG Tab.DIS PO PRN (19:50)
[2021-02-13] MEDS: atorvaSTATin 20 MG Tab PO SCH (21:56)
[2021-02-13] MEDS: Acetaminophen 325 MG Tab PO PRN (22:12)
[2021-02-13] MEDS: LORazepam 0.5 MG Tab PO PRN (23:25)
[2021-02-14] MEDS: Pantoprazole 40 MG Tab.CR PO SCH (05:14)
[2021-02-14] MEDS: Heparin Sodium 5,000 Units/ML Vial SUBCUT SCH ×3 (05:15→21:12)
[2021-02-14 06:29] LABS: ANION GAP 12.5 mEq/L (7-13)
[2021-02-14] MEDS: Aspirin 81 MG Tab.EC PO SCH (08:30)
[2021-02-14] MEDS: Furosemide 40 MG Tab PO SCH (08:30)
[2021-02-14] MEDS: Polyvinyl Alcohol 1.4% Ophth Soln 15 ML Bottle EYEBOTH SCH ×2 (08:30→21:07)
[2021-02-14] MEDS: Azithromycin 250 MG Tab PO SCH (08:30)
[2021-02-14] MEDS: Potassium Chloride 10 MEQ Tab.ER PO SCH ×2 (08:31→18:08)
[2021-02-14] MEDS: Calcium Carbonate/Vitamin D3 1250 MG-5 MCG Tab PO SCH ×2 (08:31→18:08)
[2021-02-14] MEDS: Hydrochlorothiazide/Triamterene 25-37.5 Tab PO SCH (08:31)
[2021-02-14] MEDS: cefTRIAXone 1 GM in Sodium Chloride 0.9% 50 ML IV SCH (10:54)
[2021-02-14] MEDS: Acetaminophen 325 MG Tab PO PRN ×2 (10:54→21:32)
[2021-02-14] MEDS: Docusate Sodium 100 MG Cap PO PRN (10:54)
[2021-02-14] MEDS: Clopidogrel 75 MG Tab PO SCH (12:33)
[2021-02-14] MEDS: Lactulose Soln 10 GM/15 ML 30 ML UD Cup PO PRN (18:09)
[2021-02-14] MEDS: atorvaSTATin 20 MG Tab PO SCH (21:07)
[2021-02-14] MEDS: LORazepam 0.5 MG Tab PO PRN (21:32)
[2021-02-15] MEDS: Acetaminophen 325 MG Tab PO PRN ×3 (03:10→21:26)
[2021-02-15] MEDS: Ondansetron 4 MG Tab.DIS PO PRN (04:07)
[2021-02-15] MEDS: Pantoprazole 40 MG Tab.CR PO SCH (05:43)
[2021-02-15] MEDS: Heparin Sodium 5,000 Units/ML Vial SUBCUT SCH ×3 (05:43→21:28)
[2021-02-15 06:46] LABS: ANION GAP 10.1 mEq/L (7-13)
[2021-02-15] MEDS ORDERED: Potassium Chloride 10 MEQ Tab.ER PO ONE (09:35)
[2021-02-15] MEDS: Calcium Carbonate/Vitamin D3 1250 MG-5 MCG Tab PO SCH ×2 (09:42→17:50)
[2021-02-15] MEDS: Azithromycin 250 MG Tab PO SCH (09:43)
[2021-02-15] MEDS: Aspirin 81 MG Tab.EC PO SCH (09:43)
[2021-02-15] MEDS: Hydrochlorothiazide/Triamterene 25-37.5 Tab PO SCH (09:43)
[2021-02-15] MEDS: Potassium Chloride 10 MEQ Tab.ER PO SCH ×2 (09:43→17:50)
[2021-02-15] MEDS: Polyvinyl Alcohol 1.4% Ophth Soln 15 ML Bottle EYEBOTH SCH ×2 (09:51→21:27)
[2021-02-15] MEDS: Furosemide 40 MG Tab PO SCH (09:51)
[2021-02-15] MEDS: Clopidogrel 75 MG Tab PO SCH (11:33)
[2021-02-15] MEDS: cefTRIAXone 1 GM in Sodium Chloride 0.9% 50 ML IV SCH (11:34)
[2021-02-15] MEDS: Menthol/Methyl Salicylate 85 GM Tube TOP PRN (21:25)
[2021-02-15] MEDS: atorvaSTATin 20 MG Tab PO SCH (21:26)
[2021-02-15] MEDS: LORazepam 0.5 MG Tab PO PRN (21:26)
[2021-02-16] MEDS: Acetaminophen 325 MG Tab PO PRN ×2 (03:36→09:22)
[2021-02-16] MEDS: Pantoprazole 40 MG Tab.CR PO SCH (05:05)
[2021-02-16] MEDS: Heparin Sodium 5,000 Units/ML Vial SUBCUT SCH ×3 (05:06→21:35)
[2021-02-16] MEDS: Hydrochlorothiazide/Triamterene 25-37.5 Tab PO SCH (09:03)
[2021-02-16] MEDS: Aspirin 81 MG Tab.EC PO SCH (09:03)
[2021-02-16] MEDS: Potassium Chloride 10 MEQ Tab.ER PO SCH ×2 (09:04→18:01)
[2021-02-16] MEDS: Furosemide 40 MG Tab PO SCH (09:04)
[2021-02-16] MEDS: Calcium Carbonate/Vitamin D3 1250 MG-5 MCG Tab PO SCH ×2 (09:04→18:01)
[2021-02-16] MEDS: Azithromycin 250 MG Tab PO SCH (09:04)
[2021-02-16] MEDS: Polyvinyl Alcohol 1.4% Ophth Soln 15 ML Bottle EYEBOTH SCH ×2 (09:06→21:31)
[2021-02-16] MEDS: Simethicone 80 MG Tab.Chew PO PRN (09:07)
[2021-02-16] MEDS: cefTRIAXone 1 GM in Sodium Chloride 0.9% 50 ML IV SCH (09:14)
[2021-02-16] MEDS: Ondansetron 4 MG Tab.DIS PO PRN (09:22)
[2021-02-16] MEDS: Clopidogrel 75 MG Tab PO SCH (12:27)
[2021-02-16] MEDS: Menthol/Methyl Salicylate 85 GM Tube TOP PRN (15:56)
[2021-02-16] MEDS: LORazepam 0.5 MG Tab PO PRN (21:28)
[2021-02-16] MEDS: atorvaSTATin 20 MG Tab PO SCH (21:28)
[2021-02-17] MEDS: Menthol/Methyl Salicylate 85 GM Tube TOP PRN (00:45)
[2021-02-17] MEDS: Ondansetron 4 MG Tab.DIS PO PRN ×2 (05:18→09:26)
[2021-02-17] MEDS: Pantoprazole 40 MG Tab.CR PO SCH (05:18)
[2021-02-17] MEDS: Heparin Sodium 5,000 Units/ML Vial SUBCUT SCH ×3 (05:18→22:05)
[2021-02-17] MEDS: Potassium Chloride 10 MEQ Tab.ER PO SCH ×2 (08:33→17:57)
[2021-02-17] MEDS: Calcium Carbonate/Vitamin D3 1250 MG-5 MCG Tab PO SCH ×2 (08:34→17:57)
[2021-02-17] MEDS: Azithromycin 250 MG Tab PO SCH (08:34)
[2021-02-17] MEDS: Hydrochlorothiazide/Triamterene 25-37.5 Tab PO SCH (08:34)
[2021-02-17] MEDS: Aspirin 81 MG Tab.EC PO SCH (08:34)
[2021-02-17] MEDS: Furosemide 40 MG Tab PO SCH (08:35)
[2021-02-17] MEDS: Polyvinyl Alcohol 1.4% Ophth Soln 15 ML Bottle EYEBOTH SCH ×2 (08:35→22:06)
[2021-02-17] MEDS: cefTRIAXone 1 GM in Sodium Chloride 0.9% 50 ML IV SCH (09:26)
[2021-02-17] MEDS: Sodium Chloride 0.9% 10 ML Syringe FLUSH PRN ×2 (09:27→09:56)
[2021-02-17 12:30] LABS: ANION GAP 15.3 mEq/L (7-13)
[2021-02-17] MEDS: Clopidogrel 75 MG Tab PO SCH (12:31)
[2021-02-17] MEDS: Acetaminophen 325 MG Tab PO PRN (13:19)
[2021-02-17] MEDS: atorvaSTATin 20 MG Tab PO SCH (22:05)
[2021-02-18] MEDS: Acetaminophen 325 MG Tab PO PRN ×2 (01:40→15:56)
[2021-02-18] MEDS: Menthol/Methyl Salicylate 85 GM Tube TOP PRN (01:44)
[2021-02-18] MEDS: Hydrochlorothiazide/Triamterene 25-37.5 Tab PO SCH (08:08)
[2021-02-18] MEDS: Pantoprazole 40 MG Tab.CR PO SCH (08:08)
[2021-02-18] MEDS: Aspirin 81 MG Tab.EC PO SCH (08:08)
[2021-02-18] MEDS: Potassium Chloride 10 MEQ Tab.ER PO SCH ×2 (08:08→17:58)
[2021-02-18] MEDS: Calcium Carbonate/Vitamin D3 1250 MG-5 MCG Tab PO SCH ×2 (08:08→17:58)
[2021-02-18] MEDS: Heparin Sodium 5,000 Units/ML Vial SUBCUT SCH ×3 (08:08→22:26)
[2021-02-18] MEDS: Polyvinyl Alcohol 1.4% Ophth Soln 15 ML Bottle EYEBOTH SCH ×2 (08:09→22:26)
[2021-02-18] MEDS: Furosemide 40 MG Tab PO SCH (08:09)
[2021-02-18] MEDS: Clopidogrel 75 MG Tab PO SCH (12:11)
[2021-02-18] MEDS: Simethicone 80 MG Tab.Chew PO PRN (16:00)
[2021-02-18] MEDS: atorvaSTATin 20 MG Tab PO SCH (22:25)
[2021-02-19] MEDS: Ondansetron 4 MG Tab.DIS PO PRN ×2 (04:06→12:06)
[2021-02-19] MEDS: Simethicone 80 MG Tab.Chew PO PRN (04:16)
[2021-02-19] MEDS: Calcium Carbonate/Vitamin D3 1250 MG-5 MCG Tab PO SCH ×2 (08:50→17:15)
[2021-02-19] MEDS: Aspirin 81 MG Tab.EC PO SCH (08:50)
[2021-02-19] MEDS: Polyvinyl Alcohol 1.4% Ophth Soln 15 ML Bottle EYEBOTH SCH ×2 (08:50→21:09)
[2021-02-19] MEDS: Heparin Sodium 5,000 Units/ML Vial SUBCUT SCH ×3 (08:50→21:09)
[2021-02-19] MEDS: Potassium Chloride 10 MEQ Tab.ER PO SCH ×2 (08:50→17:15)
[2021-02-19] MEDS: Pantoprazole 40 MG Tab.CR PO SCH (08:50)
[2021-02-19] MEDS: Hydrochlorothiazide/Triamterene 25-37.5 Tab PO SCH (08:50)
[2021-02-19] MEDS: Furosemide 40 MG Tab PO SCH (08:50)
[2021-02-19 09:35] LABS: ANION GAP 12.2 mEq/L (7-13)
[2021-02-19] MEDS: Clopidogrel 75 MG Tab PO SCH (12:53)
[2021-02-19] MEDS: Menthol/Methyl Salicylate 85 GM Tube TOP PRN (21:00)
[2021-02-19] MEDS: atorvaSTATin 20 MG Tab PO SCH (21:09)
[2021-02-19] MEDS: Acetaminophen 325 MG Tab PO PRN (21:13)
[2021-02-20] MEDS: LORazepam 0.5 MG Tab PO PRN (05:17)
[2021-02-20] MEDS: Acetaminophen 325 MG Tab PO PRN (05:33)
[2021-02-20] MEDS: Menthol/Methyl Salicylate 85 GM Tube TOP PRN (06:15)
[2021-02-20 09:15] LABS: ANION GAP 13.5 mEq/L (7-13)
[2021-02-20] MEDS: Ondansetron 4 MG Tab.DIS PO PRN (09:32)
[2021-02-20] MEDS: Simethicone 80 MG Tab.Chew PO PRN (09:33)
[2021-02-20] MEDS: Aspirin 81 MG Tab.EC PO SCH (09:33)
[2021-02-20] MEDS: Heparin Sodium 5,000 Units/ML Vial SUBCUT SCH ×3 (09:33→21:03)
[2021-02-20] MEDS: Pantoprazole 40 MG Tab.CR PO SCH (09:33)
[2021-02-20] MEDS: Hydrochlorothiazide/Triamterene 25-37.5 Tab PO SCH (09:33)
[2021-02-20] MEDS: Potassium Chloride 10 MEQ Tab.ER PO SCH ×2 (09:33→17:03)
[2021-02-20] MEDS: Calcium Carbonate/Vitamin D3 1250 MG-5 MCG Tab PO SCH ×2 (09:33→17:03)
[2021-02-20] MEDS: Furosemide 40 MG Tab PO SCH (09:34)
[2021-02-20] MEDS: Polyvinyl Alcohol 1.4% Ophth Soln 15 ML Bottle EYEBOTH SCH ×2 (09:34→21:02)
[2021-02-20] MEDS: Clopidogrel 75 MG Tab PO SCH (12:25)
--- NOTE | 2021-02-20 20:25 | PCM.PN ---
- General Info Date of Service: 02/20/21 Subjective Update: Pt is afebrile. Leukocytosis continues to trend down. She continues to work with PT and OT. - Patient Data Vitals - Most Recent: Last Vital Signs Temp 97.0 F 02/20/21 20:00 Pulse 96 02/20/21 20:00 Resp 20 02/20/21 20:00 BP 135/71 02/20/21 20:00 Pulse Ox 94 L 02/20/21 20:00 Weight - Most Recent: 237 lb 9.6 oz I&O - Last 24 Hours: Intake & Output 02/20/21 02/20/21 02/20/21 06:59 14:59 22:59 Intake Total 120 Balance 120 Lab Results Last 24 Hours: Laboratory Results - last 24 hr 02/20/21 02/20/21 Range/Units 08:42 08:42 WBC 14.1 H (5.0-10.0) 10^3/uL RBC 4.46 (4.2-5.4) 10^6/uL Hgb 13.5 D (12.0-16.0) g/dL Hct 43.0 (37.0-47.0) % MCV 96.4 (80-100) fL MCH 30.3 (27.0-34.0) pg MCHC 31.4 L (33.0-35.0) g/dL Plt Count 236 D (150-450) 10^3/uL Neut % (Auto) 69.8 (42.2-75.2) % Lymph % (Auto) 19.4 L (20.5-50.1) % [place] % (Auto) 8.4 H (2-8) % Eos % (Auto) 2.0 (1.0-3.0) % Baso % (Auto) 0.4 (0.0-1.0) % Add Manual Diff Yes Neutrophils % (Manual) 66 (42-75) % Lymphocytes % (Manual) 18 L (20-50) % Monocytes % (Manual) 8 (2-8) % Eosinophils % (Manual) 5 H (1-3) % Basophils % (Manual) 1 Myelocytes % 2 Platelet Estimate Adequate Sodium 140 (136-145) mmol/L Potassium 3.5 (3.5-5.1) mmol/L Chloride 98 (98-107) mmol/L Carbon Dioxide 32 (21-32) mmol/L Anion Gap 13.5 H (7-13) mEq/L BUN 35 H (7-18) mg/dL Creatinine 1.77 H (0.55-1.02) mg/dL Est Cr Clr Drug Dosing 19.73 mL/min Estimated GFR (MDRD) 28 Glucose 104 H (70-99) mg/dL Calcium 9.2 (8.5-10.1) mg/dL Med Orders - Current: Current Medications Acetaminophen (Acetaminophen 325 Mg Tab) 650 mg PO Q4H PRN PRN Reason: Pain (Mild 1-3)/fever Last Admin: 02/20/21 05:33 Dose: 650 mg Documented by: Albuterol/Ipratropium (Albuterol/Ipratropium 3.0-0.5 Mg/3 Ml Neb Soln) 3 ml NEB Q2H PRN PRN Reason: sob Artificial Tears (Polyvinyl Alcohol 1.4% Ophth Soln 15 Ml Bottle) 0 ml EYEBOTH BID [facility] Last Admin: 02/20/21 09:34 Dose: 1 drop Documented by: Aspirin (Aspirin 81 Mg Tab.Ec) 81 mg PO WITHBREAKFAST [facility] Last Admin: 02/20/21 09:33 Dose: 81 mg Documented by: Atorvastatin Calcium (Atorvastatin 20 Mg Tab) 40 mg PO BEDTIME [facility] Last Admin: 02/19/21 21:09 Dose: 40 mg Documented by: Calcium Carbonate (Calcium Carbonate/Vitamin D3 1250 Mg-5 Mcg Tab) 1 tab PO BIDMEALS [facility] Last Admin: 02/20/21 17:03 Dose: 1 tab Documented by: Clopidogrel Bisulfate (Clopidogrel 75 Mg Tab) 75 mg PO WITHLUNCH [facility] Last Admin: 02/20/21 12:25 Dose: 75 mg Documented by: Docusate Sodium (Docusate Sodium 100 Mg Cap) 100 mg PO BID PRN PRN Reason: Constipation Last Admin: 02/14/21 10:54 Dose: 100 mg Documented by: Furosemide (Furosemide 40 Mg Tab) 40 mg PO DAILY [facility] Last Admin: 02/20/21 09:34 Dose: 40 mg Documented by: Heparin Sodium (Porcine) (Heparin Sodium 5,000 Units/Ml Vial) 5,000 units SUBCUT Q8HR [facility] Last Admin: 02/20/21 14:55 Dose: 5,000 units Documented by: Lactulose (Lactulose Soln 10 Gm/15 Ml 30 Ml Ud Cup) 20 gm PO ONETIME PRN PRN Reason: Constipation Last Admin: 02/14/21 18:09 Dose: 20 gm Documented by: Lorazepam (Lorazepam 0.5 Mg Tab) 0.5 mg PO BID PRN PRN Reason: Anxiety Last Admin: 02/20/21 05:17 Dose: 0.5 mg Documented by: Methyl Salicylate (Menthol/Methyl Salicylate 85 Gm Tube) 1 gm TOP BID PRN PRN Reason: Pain (mild 1-3) Last Admin: 02/20/21 06:15 Dose: 1 applic Documented by: Ondansetron HCl (Ondansetron 4 Mg Tab.Dis) 4 mg PO Q4H PRN PRN Reason: nausea, able to take PO Last Admin: 02/20/21 09:32 Dose: 4 mg Documented by: Pantoprazole Sodium (Pantoprazole 40 Mg Tab.Cr) 40 mg PO ACBRK [facility] Last Admin: 02/20/21 09:33 Dose: 40 mg Documented by: Potassium Chloride (Potassium Chloride 10 Meq Tab.Er) 20 meq PO BIDMEALS [facility] Last Admin: 02/20/21 17:03 Dose: 20 meq Documented by: Simethicone (Simethicone 80 Mg Tab.Chew) 80 mg PO Q6H PRN PRN Reason: Gas Last Admin: 02/20/21 09:33 Dose: 80 mg Documented by: Temazepam (Temazepam 15 Mg Cap) 15 mg PO BEDTIME PRN PRN Reason: Sleep Triamterene/Hydrochlorothiazide (Hydrochlorothiazide/Triamterene 25-37.5 Tab) 1 each PO DAILY [facility] Last Admin: 02/20/21 09:33 Dose: 1 each Documented by: Discontinued Medications Acetaminophen (Acetaminophen 500 Mg Tab) 1,000 mg PO Q8H PRN PRN Reason: Pain (mild 1-3) Last Admin: 02/13/21 09:04 Dose: 1,000 mg Documented by: Azithromycin (Azithromycin 250 Mg Tab) 500 mg PO ONETIME ONE Stop: 02/13/21 12:31 Last Admin: 02/13/21 13:15 Dose: 500 mg Documented by: Azithromycin (Azithromycin 250 Mg Tab) 250 mg PO DAILY [facility] Stop: 02/17/21 09:01 Last Admin: 02/17/21 08:34 Dose: 250 mg Documented by: Ceftriaxone Sodium 1 gm/ (Sodium Chloride) 50 mls @ 100 mls/hr IV Q24H [facility] Last Infusion: 02/17/21 09:56 Dose: Infused Documented by: Non-Formulary Medication (Albuterol/Ipratropium [Combivent Respimat]) 2 puff INH Q4HR PRN PRN Reason: Wheezing Potassium Chloride (Potassium Chloride 10 Meq Tab.Er) 10 meq PO BIDMEALS [facility] Last Admin: 02/13/21 09:02 Dose: 10 meq Documented by: Potassium Chloride (Potassium Chloride 10 Meq Tab.Er) 40 meq PO ONETIME ONE Stop: 02/12/21 13:01 Last Admin: 02/12/21 14:33 Dose: 40 meq Documented by: Potassium Chloride (Potassium Chloride 10 Meq Tab.Er) 40 meq PO ONETIME ONE Stop: 02/13/21 16:01 Last Admin: 02/13/21 16:19 Dose: 40 meq Documented by: Potassium Chloride (Potassium Chloride 10 Meq Tab.Er) 40 meq PO ONETIME ONE Stop: 02/15/21 09:36 Last Admin: 02/15/21 11:33 Dose: 40 meq Documented by: Sodium Chloride (Sodium Chloride 0.9% 10 Ml Syringe) 10 ml FLUSH ASDIRECTED PRN PRN Reason: IV Use Last Admin: 02/17/21 09:56 Dose: 10 ml Documented by: - Exam Physical Findings Comments:: General: Elderly female. In no acute distress CVS: S1S2 appreciated. RRR lungs: clear bilaterally pa: soft, non tender. bowel sounds present ext: no clubbing, cyanosis or edema neuro: moves all extremities psych: stable mood and affect. - Patient Data Lab Results Last 24 hrs: Laboratory Results - last 24 hr 02/20/21 02/20/21 Range/Units 08:42 08:42 WBC 14.1 H (5.0-10.0) 10^3/uL RBC 4.46 (4.2-5.4) 10^6/uL Hgb 13.5 D (12.0-16.0) g/dL Hct 43.0 (37.0-47.0) % MCV 96.4 (80-100) fL MCH 30.3 (27.0-34.0) pg MCHC 31.4 L (33.0-35.0) g/dL Plt Count 236 D (150-450) 10^3/uL Neut % (Auto) 69.8 (42.2-75.2) % Lymph % (Auto) 19.4 L (20.5-50.1) % [place] % (Auto) 8.4 H (2-8) % Eos % (Auto) 2.0 (1.0-3.0) % Baso % (Auto) 0.4 (0.0-1.0) % Add Manual Diff Yes Neutrophils % (Manual) 66 (42-75) % Lymphocytes % (Manual) 18 L (20-50) % Monocytes % (Manual) 8 (2-8) % Eosinophils % (Manual) 5 H (1-3) % Basophils % (Manual) 1 Myelocytes % 2 Platelet Estimate Adequate Sodium 140 (136-145) mmol/L Potassium 3.5 (3.5-5.1) mmol/L Chloride 98 (98-107) mmol/L Carbon Dioxide 32 (21-32) mmol/L Anion Gap 13.5 H (7-13) mEq/L BUN 35 H (7-18) mg/dL Creatinine 1.77 H (0.55-1.02) mg/dL Est Cr Clr Drug Dosing 19.73 mL/min Estimated GFR (MDRD) 28 Glucose 104 H (70-99) mg/dL Calcium 9.2 (8.5-10.1) mg/dL Result Diagrams: 02/20/21 08:42 02/20/21 08:42 Sepsis Event Note - Evaluation Sepsis Screening Result: No Definite Risk - Focused Exam Vital Signs: Vital Signs Temp Pulse Resp BP Pulse Ox 02/20/21 20:00 97.0 F 96 20 135/71 94 L 02/20/21 08:27 96.9 F 83 20 112/52 L 98 - Problem List & Annotations (1) COPD (chronic obstructive pulmonary disease) SNOMED Code(s): 56085125 Code(s): J44.9 - CHRONIC OBSTRUCTIVE PULMONARY DISEASE, UNSPECIFIED Status: Acute Current Visit: No (2) Essential hypertension SNOMED Code(s): 14128739 Code(s): I10 - ESSENTIAL (PRIMARY) HYPERTENSION Status: Acute Current V isit: No (3) Failure to thrive in adult SNOMED Code(s): 656384555 Code(s): R62.7 - ADULT FAILURE TO THRIVE Status: Acute Current Visit: No (4) HTN (hypertension) SNOMED Code(s): 25168528 Code(s): I10 - ESSENTIAL (PRIMARY) HYPERTENSION Status: Acute Current Visit: No (5) Weakness SNOMED Code(s): 43616702 Code(s): R53.1 - WEAKNESS Status: Acute Current Visit: No - Problem List Review Problem List Initiated/Reviewed/Updated: Yes - Plan Plan:: 75-year-old woman with multiple comorbidities who presented with generalized weakness, inability to get out of bed and take care of herself; 1. 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 old cva MRI showed no cute cva on this admission MRA showed no stenosis cont statin cont asa and plavix for 21 days then plavix alone control bp, follow BS 3. Numerous ecchymosis and skin lesions, secondary to failure to thrive and poor mobility, anti-Platelet meds 4 . Chronic kidney disease III. follow periodically Avoid any nephrotoxins. 5. Impaired glucose tolerance in the setting of morbid obesity -A1c 5.9 follow periodically 6. Leukocytosis - trending down. Pt is afebrile. Will follow CBC periodically.
[2021-02-20] MEDS: atorvaSTATin 20 MG Tab PO SCH (21:02)
[2021-02-21] MEDS: Menthol/Methyl Salicylate 85 GM Tube TOP PRN ×2 (00:39→21:05)
[2021-02-21] MEDS: Acetaminophen 325 MG Tab PO PRN ×3 (00:40→21:04)
[2021-02-21] MEDS: LORazepam 0.5 MG Tab PO PRN (00:47)
[2021-02-21] MEDS: Pantoprazole 40 MG Tab.CR PO SCH (06:23)
[2021-02-21] MEDS: Heparin Sodium 5,000 Units/ML Vial SUBCUT SCH ×3 (06:24→21:08)
[2021-02-21] MEDS: Aspirin 81 MG Tab.EC PO SCH (08:04)
[2021-02-21] MEDS: Docusate Sodium 100 MG Cap PO PRN (08:04)
[2021-02-21] MEDS: Potassium Chloride 10 MEQ Tab.ER PO SCH ×2 (08:04→17:32)
[2021-02-21] MEDS: Calcium Carbonate/Vitamin D3 1250 MG-5 MCG Tab PO SCH ×2 (08:04→17:32)
[2021-02-21] MEDS: Hydrochlorothiazide/Triamterene 25-37.5 Tab PO SCH (08:08)
[2021-02-21] MEDS: Furosemide 40 MG Tab PO SCH (08:08)
[2021-02-21] MEDS: Polyvinyl Alcohol 1.4% Ophth Soln 15 ML Bottle EYEBOTH SCH ×2 (08:09→21:04)
[2021-02-21] MEDS: Clopidogrel 75 MG Tab PO SCH (11:39)
[2021-02-21] MEDS ORDERED: Fluticasone Propionate Nasal Spray 16 GM Bottle NASBOTH PRN (16:32)
[2021-02-21] MEDS: atorvaSTATin 20 MG Tab PO SCH (21:05)
[2021-02-22] MEDS: Acetaminophen 325 MG Tab PO PRN (05:35)
[2021-02-22] MEDS: Pantoprazole 40 MG Tab.CR PO SCH (05:35)
[2021-02-22] MEDS: Heparin Sodium 5,000 Units/ML Vial SUBCUT SCH ×3 (05:38→21:39)
[2021-02-22] MEDS: Furosemide 40 MG Tab PO SCH (08:06)
[2021-02-22] MEDS: Aspirin 81 MG Tab.EC PO SCH (08:06)
[2021-02-22] MEDS: Hydrochlorothiazide/Triamterene 25-37.5 Tab PO SCH (08:06)
[2021-02-22] MEDS: Calcium Carbonate/Vitamin D3 1250 MG-5 MCG Tab PO SCH ×2 (08:06→17:56)
[2021-02-22] MEDS: Potassium Chloride 10 MEQ Tab.ER PO SCH ×2 (08:06→17:56)
[2021-02-22] MEDS: Polyvinyl Alcohol 1.4% Ophth Soln 15 ML Bottle EYEBOTH SCH ×2 (08:08→22:15)
[2021-02-22] MEDS: Docusate Sodium 100 MG Cap PO PRN (10:09)
[2021-02-22] MEDS: Clopidogrel 75 MG Tab PO SCH (12:37)
[2021-02-22] MEDS: LORazepam 0.5 MG Tab PO PRN (16:00)
[2021-02-22] MEDS: atorvaSTATin 20 MG Tab PO SCH (21:39)
[2021-02-23] MEDS: Heparin Sodium 5,000 Units/ML Vial SUBCUT SCH ×3 (06:36→21:15)
[2021-02-23] MEDS: Pantoprazole 40 MG Tab.CR PO SCH (06:36)
[2021-02-23] MEDS: Potassium Chloride 10 MEQ Tab.ER PO SCH ×2 (10:21→17:15)
[2021-02-23] MEDS: Hydrochlorothiazide/Triamterene 25-37.5 Tab PO SCH (10:21)
[2021-02-23] MEDS: Calcium Carbonate/Vitamin D3 1250 MG-5 MCG Tab PO SCH ×2 (10:21→17:15)
[2021-02-23] MEDS: Aspirin 81 MG Tab.EC PO SCH (10:21)
[2021-02-23] MEDS: Furosemide 40 MG Tab PO SCH (10:22)
[2021-02-23] MEDS: Acetaminophen 325 MG Tab PO PRN ×2 (10:23→23:55)
[2021-02-23] MEDS: Polyvinyl Alcohol 1.4% Ophth Soln 15 ML Bottle EYEBOTH SCH ×2 (10:24→21:15)
[2021-02-23] MEDS: Clopidogrel 75 MG Tab PO SCH (11:56)
[2021-02-23] MEDS: Menthol/Methyl Salicylate 85 GM Tube TOP PRN (16:12)
[2021-02-23] MEDS: atorvaSTATin 20 MG Tab PO SCH (21:13)
[2021-02-24] MEDS: Heparin Sodium 5,000 Units/ML Vial SUBCUT SCH (05:55)
[2021-02-24] MEDS: Pantoprazole 40 MG Tab.CR PO SCH (05:55)
[2021-02-24] MEDS: Aspirin 81 MG Tab.EC PO SCH (08:19)
[2021-02-24] MEDS: Hydrochlorothiazide/Triamterene 25-37.5 Tab PO SCH (08:19)
[2021-02-24] MEDS: Calcium Carbonate/Vitamin D3 1250 MG-5 MCG Tab PO SCH ×2 (08:19→17:27)
[2021-02-24] MEDS: Furosemide 40 MG Tab PO SCH (08:19)
[2021-02-24] MEDS: Polyvinyl Alcohol 1.4% Ophth Soln 15 ML Bottle EYEBOTH SCH ×2 (08:19→21:50)
[2021-02-24] MEDS: Potassium Chloride 10 MEQ Tab.ER PO SCH ×2 (08:19→17:27)
[2021-02-24] MEDS: Ondansetron 4 MG Tab.DIS PO PRN (10:19)
[2021-02-24] MEDS: Enoxaparin 30 MG/0.3 ML Syringe SUBCUT SCH (10:58)
[2021-02-24] MEDS: Docusate Sodium 100 MG Cap PO PRN ×2 (11:05→23:46)
[2021-02-24] MEDS: Clopidogrel 75 MG Tab PO SCH (11:41)
[2021-02-24] MEDS: atorvaSTATin 20 MG Tab PO SCH (21:49)
[2021-02-24] MEDS: Acetaminophen 325 MG Tab PO PRN (23:47)
[2021-02-25] MEDS: Pantoprazole 40 MG Tab.CR PO SCH (05:14)
[2021-02-25] MEDS: Calcium Carbonate/Vitamin D3 1250 MG-5 MCG Tab PO SCH ×2 (09:00→17:33)
[2021-02-25] MEDS: Aspirin 81 MG Tab.EC PO SCH (09:00)
[2021-02-25] MEDS: Hydrochlorothiazide/Triamterene 25-37.5 Tab PO SCH (09:00)
[2021-02-25] MEDS: Potassium Chloride 10 MEQ Tab.ER PO SCH ×2 (09:01→17:33)
[2021-02-25] MEDS: Docusate Sodium 100 MG Cap PO PRN (09:01)
[2021-02-25] MEDS: Furosemide 40 MG Tab PO SCH (09:01)
[2021-02-25] MEDS: Enoxaparin 30 MG/0.3 ML Syringe SUBCUT SCH (09:01)
[2021-02-25] MEDS: Polyvinyl Alcohol 1.4% Ophth Soln 15 ML Bottle EYEBOTH SCH ×2 (09:02→21:46)
[2021-02-25] MEDS: Clopidogrel 75 MG Tab PO SCH (12:25)
[2021-02-25] MEDS: Albuterol/Ipratropium 3.0-0.5 MG/3 ML Neb Soln NEB PRN (15:00)
[2021-02-25] MEDS: atorvaSTATin 20 MG Tab PO SCH (21:46)
[2021-02-26] MEDS: Pantoprazole 40 MG Tab.CR PO SCH (06:09)
[2021-02-26] MEDS: Calcium Carbonate/Vitamin D3 1250 MG-5 MCG Tab PO SCH ×2 (09:13→17:31)
[2021-02-26] MEDS: Potassium Chloride 10 MEQ Tab.ER PO SCH ×2 (09:13→17:31)
[2021-02-26] MEDS: Hydrochlorothiazide/Triamterene 25-37.5 Tab PO SCH (09:19)
[2021-02-26] MEDS: Aspirin 81 MG Tab.EC PO SCH (09:19)
[2021-02-26] MEDS: Furosemide 40 MG Tab PO SCH (09:19)
[2021-02-26] MEDS: Enoxaparin 30 MG/0.3 ML Syringe SUBCUT SCH (09:21)
[2021-02-26] MEDS: Polyvinyl Alcohol 1.4% Ophth Soln 15 ML Bottle EYEBOTH SCH ×2 (09:22→21:27)
[2021-02-26] MEDS: Clopidogrel 75 MG Tab PO SCH (12:27)
[2021-02-26] MEDS: Ondansetron 4 MG Tab.DIS PO PRN (13:37)
[2021-02-26] MEDS: Docusate Sodium 100 MG Cap PO PRN (17:31)
[2021-02-26] MEDS: Acetaminophen 325 MG Tab PO PRN (21:27)
[2021-02-26] MEDS: atorvaSTATin 20 MG Tab PO SCH (21:27)
[2021-02-27] MEDS: Pantoprazole 40 MG Tab.CR PO SCH (05:21)
[2021-02-27] MEDS: Furosemide 40 MG Tab PO SCH (09:02)
[2021-02-27] MEDS: Hydrochlorothiazide/Triamterene 25-37.5 Tab PO SCH (09:02)
[2021-02-27] MEDS: Potassium Chloride 10 MEQ Tab.ER PO SCH ×2 (09:03→17:22)
[2021-02-27] MEDS: Calcium Carbonate/Vitamin D3 1250 MG-5 MCG Tab PO SCH ×2 (09:03→17:22)
[2021-02-27] MEDS: Aspirin 81 MG Tab.EC PO SCH (09:03)
[2021-02-27] MEDS: Polyvinyl Alcohol 1.4% Ophth Soln 15 ML Bottle EYEBOTH SCH ×2 (09:06→21:25)
[2021-02-27] MEDS: Enoxaparin 30 MG/0.3 ML Syringe SUBCUT SCH (09:08)
[2021-02-27] MEDS: Clopidogrel 75 MG Tab PO SCH (12:16)
[2021-02-27 12:44] LABS: ANION GAP 13.6 mEq/L (7-13)
--- NOTE | 2021-02-27 13:39 | PCM.PN ---
- General Info Date of Service: 02/27/21 Subjective Update: Pt is afebrile. Leukocytosis continues to further trend down. She continues to work with PT and OT. Functional Status: Reports: Pain Controlled, Tolerating Diet - Review of Systems General: Denies: Fever Pulmonary: Denies: Shortness of Breath Cardiovascular: Denies: Chest Pain Gastrointestinal: Denies: Abdominal Pain Neurological: Denies: Confusion - Patient Data Vitals - Most Recent: Last Vital Signs Temp 99.0 F 02/27/21 07:58 Pulse 98 02/27/21 07:58 Resp 18 02/27/21 07:58 BP 134/96 H 02/27/21 07:58 Pulse Ox 95 02/27/21 07:58 Weight - Most Recent: 237 lb 9.6 oz I&O - Last 24 Hours: Intake & Output 02/26/21 02/27/21 02/27/21 22:59 06:59 14:59 Intake Total 200 900 Balance 200 900 Lab Results Last 24 Hours: Laboratory Results - last 24 hr 02/27/21 02/27/21 Range/Units 12:24 12:24 WBC 12.6 H (5.0-10.0) 10^3/uL RBC 4.86 (4.2-5.4) 10^6/uL Hgb 14.9 (12.0-16.0) g/dL Hct 47.6 H (37.0-47.0) % MCV 97.9 (80-100) fL MCH 30.7 (27.0-34.0) pg MCHC 31.3 L (33.0-35.0) g/dL Plt Count 328 D (150-450) 10^3/uL Neut % (Auto) 68.6 (42.2-75.2) % Lymph % (Auto) 19.3 L (20.5-50.1) % [place] % (Auto) 10.0 H (2-8) % Eos % (Auto) 1.7 (1.0-3.0) % Baso % (Auto) 0.4 (0.0-1.0) % Sodium 137 (136-145) mmol/L Potassium 3.6 (3.5-5.1) mmol/L Chloride 95 L (98-107) mmol/L Carbon Dioxide 32 (21-32) mmol/L Anion Gap 13.6 H (7-13) mEq/L BUN 32 H (7-18) mg/dL Creatinine 1.76 H (0.55-1.02) mg/dL Est Cr Clr Drug Dosing 19.84 mL/min Estimated GFR (MDRD) 28 Glucose 125 H (70-99) mg/dL Calcium 9.6 (8.5-10.1) mg/dL Med Orders - Current: Current Medications Acetaminophen (Acetaminophen 325 Mg Tab) 650 mg PO Q4H PRN PRN Reason: Pain (Mild 1-3)/fever Last Admin: 02/26/21 21:27 Dose: 650 mg Documented by: Albuterol/Ipratropium (Albuterol/Ipratropium 3.0-0.5 Mg/3 Ml Neb Soln) 3 ml NEB Q2H PRN PRN Reason: sob Last Admin: 02/25/21 15:00 Dose: 3 ml Documented by: Artificial Tears (Polyvinyl Alcohol 1.4% Ophth Soln 15 Ml Bottle) 0 ml EYEBOTH BID [facility] Last Admin: 02/27/21 09:06 Dose: 1 drop Documented by: Aspirin (Aspirin 81 Mg Tab.Ec) 81 mg PO WITHBREAKFAST [facility] Last Admin: 02/27/21 09:03 Dose: 81 mg Documented by: Atorvastatin Calcium (Atorvastatin 20 Mg Tab) 40 mg PO BEDTIME [facility] Last Admin: 02/26/21 21:27 Dose: 40 mg Documented by: Calcium Carbonate (Calcium Carbonate/Vitamin D3 1250 Mg-5 Mcg Tab) 1 tab PO BIDMEALS [facility] Last Admin: 02/27/21 09:03 Dose: 1 tab Documented by: Clopidogrel Bisulfate (Clopidogrel 75 Mg Tab) 75 mg PO WITHLUNCH [facility] Last Admin: 02/27/21 12:16 Dose: 75 mg Documented by: Docusate Sodium (Docusate Sodium 100 Mg Cap) 100 mg PO BID PRN PRN Reason: Constipation Last Admin: 02/26/21 17:31 Dose: 100 mg Documented by: Enoxaparin Sodium (Enoxaparin 30 Mg/0.3 Ml Syringe) 30 mg SUBCUT DAILY [facility] Last Admin: 02/27/21 09:08 Dose: 30 mg Documented by: Fluticasone Propionate (Fluticasone Propionate Nasal [place] 16 Gm Bottle) 0 gm NASBOTH DAILY PRN PRN Reason: Congestion Furosemide (Furosemide 40 Mg Tab) 40 mg PO DAILY [facility] Last Admin: 02/27/21 09:02 Dose: 40 mg Documented by: Lactulose (Lactulose Soln 10 Gm/15 Ml 30 Ml Ud Cup) 20 gm PO ONETIME PRN PRN Reason: Constipation Last Admin: 02/14/21 18:09 Dose: 20 gm Documented by: Lorazepam (Lorazepam 0.5 Mg Tab) 0.5 mg PO BID PRN PRN Reason: Anxiety Last Admin: 02/22/21 16:00 Dose: 0.5 mg Documented by: Methyl Salicylate (Menthol/Methyl Salicylate 85 Gm Tube) 1 gm TOP BID PRN PRN Reason: Pain (mild 1-3) Last Admin: 02/23/21 16:12 Dose: 1 applic Documented by: Metaxalone 800 Mg (Tab *Own Med*) 800 mg PO TID PRN PRN Reason: Muscle Spasm - Painful Ondansetron HCl (Ondansetron 4 Mg Tab.Dis) 4 mg PO Q4H PRN PRN Reason: nausea, able to take PO Last Admin: 02/26/21 13:37 Dose: 4 mg Documented by: Pantoprazole Sodium (Pantoprazole 40 Mg Tab.Cr) 40 mg PO ACBRK [facility] Last Admin: 02/27/21 05:21 Dose: 40 mg Documented by: Potassium Chloride (Potassium Chloride 10 Meq Tab.Er) 20 meq PO BIDMEALS [facility] Last Admin: 02/27/21 09:03 Dose: 20 meq Documented by: Simethicone (Simethicone 80 Mg Tab.Chew) 80 mg PO Q6H PRN PRN Reason: Gas Last Admin: 02/20/21 09:33 Dose: 80 mg Documented by: Temazepam (Temazepam 15 Mg Cap) 15 mg PO BEDTIME PRN PRN Reason: Sleep Triamterene/Hydrochlorothiazide (Hydrochlorothiazide/Triamterene 25-37.5 Tab) 1 each PO DAILY [facility] Last Admin: 02/27/21 09:02 Dose: 1 each Documented by: Discontinued Medications Acetaminophen (Acetaminophen 500 Mg Tab) 1,000 mg PO Q8H PRN PRN Reason: Pain (mild 1-3) Last Admin: 02/13/21 09:04 Dose: 1,000 mg Documented by: Azithromycin (Azithromycin 250 Mg Tab) 500 mg PO ONETIME ONE Stop: 02/13/21 12:31 Last Admin: 02/13/21 13:15 Dose: 500 mg Documented by: Azithromycin (Azithromycin 250 Mg Tab) 250 mg PO DAILY [facility] Stop: 02/17/21 09:01 Last Admin: 02/17/21 08:34 Dose: 250 mg Documented by: Heparin Sodium (Porcine) (Heparin Sodium 5,000 Units/Ml Vial) 5,000 units SUBCUT Q8HR [facility] Last Admin: 02/24/21 05:55 Dose: 5,000 units Documented by: Ceftriaxone Sodium 1 gm/ (Sodium Chloride) 50 mls @ 100 mls/hr IV Q24H [facility] Last Infusion: 02/17/21 09:56 Dose: Infused Documented by: Non-Formulary Medication (Albuterol/Ipratropium [Combivent Respimat]) 2 puff INH Q4HR PRN PRN Reason: Wheezing Potassium Chloride (Potassium Chloride 10 Meq Tab.Er) 10 meq PO BIDMEALS [facility] Last Admin: 02/13/21 09:02 Dose: 10 meq Documented by: Potassium Chloride (Potassium Chloride 10 Meq Tab.Er) 40 meq PO ONETIME ONE Stop: 02/12/21 13:01 Last Admin: 02/12/21 14:33 Dose: 40 meq Documented by: Potassium Chloride (Potassium Chloride 10 Meq Tab.Er) 40 meq PO ONETIME ONE Stop: 02/13/21 16:01 Last Admin: 02/13/21 16:19 Dose: 40 meq Documented by: Potassium Chloride (Potassium Chloride 10 Meq Tab.Er) 40 meq PO ONETIME ONE Stop: 02/15/21 09:36 Last Admin: 02/15/21 11:33 Dose: 40 meq Documented by: Sodium Chloride (Sodium Chloride 0.9% 10 Ml Syringe) 10 ml FLUSH ASDIRECTED PRN PRN Reason: IV Use Last Admin: 02/17/21 09:56 Dose: 10 ml Documented by: - Exam General: Alert, Oriented Lungs: Clear to Auscultation, Normal Respiratory Effort Cardiovascular: Regular Rate, Regular Rhythm GI/Abdominal Exam: Normal Bowel Sounds, Soft, Non-Tender, Other (morbidly obese) Extremities: Pedal Edema (trace b/l ) - Patient Data Lab Results Last 24 hrs: Laboratory Results - last 24 hr 02/27/21 02/27/21 Range/Units 12:24 12:24 WBC 12.6 H (5.0-10.0) 10^3/uL RBC 4.86 (4.2-5.4) 10^6/uL Hgb 14.9 (12.0-16.0) g/dL Hct 47.6 H (37.0-47.0) % MCV 97.9 (80-100) fL MCH 30.7 (27.0-34.0) pg MCHC 31.3 L (33.0-35.0) g/dL Plt Count 328 D (150-450) 10^3/uL Neut % (Auto) 68.6 (42.2-75.2) % Lymph % (Auto) 19.3 L (20.5-50.1) % [place] % (Auto) 10.0 H (2-8) % Eos % (Auto) 1.7 (1.0-3.0) % Baso % (Auto) 0.4 (0.0-1.0) % Sodium 137 (136-145) mmol/L Potassium 3.6 (3.5-5.1) mmol/L Chloride 95 L (98-107) mmol/L Carbon Dioxide 32 (21-32) mmol/L Anion Gap 13.6 H (7-13) mEq/L BUN 32 H (7-18) mg/dL Creatinine 1.76 H (0.55-1.02) mg/dL Est Cr Clr Drug Dosing 19.84 mL/min Estimated GFR (MDRD) 28 Glucose 125 H (70-99) mg/dL Calcium 9.6 (8.5-10.1) mg/dL Result Diagrams: 02/27/21 12:24 02/27/21 12:24 Sepsis Event Note - Evaluation Sepsis Screening Result: No Definite Risk - Focused Exam Vital Signs: Vital Signs Temp Pulse Resp BP Pulse Ox 02/27/21 07:58 99.0 F 98 18 134/96 H 95 - Problem List & Annotations (1) COPD (chronic obstructive pulmonary disease) SNOMED Code(s): 68620271 Code(s): J44.9 - CHRONIC OBSTRUCTIVE PULMONARY DISEASE, UNSPECIFIED Status: Acute Current Visit: No (2) Cerebrovascular accident (CVA) SNOMED Code(s): 111710098 Code(s): I63.9 - CEREBRAL INFARCTION, UNSPECIFIED Status: Acute Current Visit: No Qualifiers: Annotation/Comment:: Recent CVA, unknown age (3) Essential hypertension SNOMED Code(s): 40500126 Code(s): I10 - ESSENTIAL (PRIMARY) HYPERTENSION Status: Acute Current Visit: No (4) Weakness SNOMED Code(s): 83349298 Code(s): R53.1 - WEAKNESS Status: Acute Current Visit: No (5) Leukocytosis SNOMED Code(s): 158529903, 339912805 Code(s): D72.829 - ELEVATED WHITE BLOOD CELL COUNT, UNSPECIFIED Status: Acute Current Visit: No - Problem List Review Problem List Initiated/Reviewed/Updated: Yes - Plan Plan:: 75-year-old woman with multiple comorbidities who presented with generalized weakness, inability to get out of bed and take care of herself; 1. 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 old cva MRI showed no cute cva on this admission MRA showed no stenosis cont statin cont asa and plavix for 21 days then plavix alone control bp, follow BS 3. Numerous ecchymosis and skin lesions, secondary to failure to thrive and poor mobility, anti-Platelet meds resolving 4 . Chronic kidney disease III. follow periodically Avoid any nephrotoxins. 5. Impaired glucose tolerance in the setting of morbid obesity -A1c 5.9 follow periodically 6. Leukocytosis - trending down. Pt is afebrile. Will follow CBC periodically. 7. recent admission for GI Bleed she was treated in [place] reviewed records EGD and colonoscopy did not find malignancy
[2021-02-27] MEDS: atorvaSTATin 20 MG Tab PO SCH (21:25)
[2021-02-28] MEDS: Pantoprazole 40 MG Tab.CR PO SCH (06:26)
[2021-02-28] MEDS: Hydrochlorothiazide/Triamterene 25-37.5 Tab PO SCH (10:16)
[2021-02-28] MEDS: Calcium Carbonate/Vitamin D3 1250 MG-5 MCG Tab PO SCH ×2 (10:16→17:49)
[2021-02-28] MEDS: Aspirin 81 MG Tab.EC PO SCH (10:16)
[2021-02-28] MEDS: Enoxaparin 30 MG/0.3 ML Syringe SUBCUT SCH (10:17)
[2021-02-28] MEDS: Potassium Chloride 10 MEQ Tab.ER PO SCH ×2 (10:17→17:49)
[2021-02-28] MEDS: Furosemide 40 MG Tab PO SCH (10:17)
[2021-02-28] MEDS: Polyvinyl Alcohol 1.4% Ophth Soln 15 ML Bottle EYEBOTH SCH ×2 (10:17→21:07)
[2021-02-28] MEDS: Clopidogrel 75 MG Tab PO SCH (14:09)
[2021-02-28] MEDS: atorvaSTATin 20 MG Tab PO SCH (21:05)
[2021-03-01] MEDS: Pantoprazole 40 MG Tab.CR PO SCH (05:18)
[2021-03-01] MEDS: Polyvinyl Alcohol 1.4% Ophth Soln 15 ML Bottle EYEBOTH SCH ×2 (09:00→20:40)
[2021-03-01] MEDS: Potassium Chloride 10 MEQ Tab.ER PO SCH ×2 (10:03→19:31)
[2021-03-01] MEDS: Furosemide 40 MG Tab PO SCH (10:03)
[2021-03-01] MEDS: Aspirin 81 MG Tab.EC PO SCH (10:03)
[2021-03-01] MEDS: Calcium Carbonate/Vitamin D3 1250 MG-5 MCG Tab PO SCH ×2 (10:03→19:31)
[2021-03-01] MEDS: Hydrochlorothiazide/Triamterene 25-37.5 Tab PO SCH (10:03)
[2021-03-01] MEDS: Enoxaparin 30 MG/0.3 ML Syringe SUBCUT SCH (10:04)
[2021-03-01] MEDS: Simethicone 80 MG Tab.Chew PO PRN (10:15)
[2021-03-01] MEDS: Clopidogrel 75 MG Tab PO SCH (12:00)
[2021-03-01] MEDS: atorvaSTATin 20 MG Tab PO SCH (20:39)
[2021-03-02] MEDS: Docusate Sodium 100 MG Cap PO PRN ×2 (02:11→08:07)
[2021-03-02] MEDS: Pantoprazole 40 MG Tab.CR PO SCH (05:32)
[2021-03-02] MEDS: Calcium Carbonate/Vitamin D3 1250 MG-5 MCG Tab PO SCH ×2 (08:04→17:22)
[2021-03-02] MEDS: Potassium Chloride 10 MEQ Tab.ER PO SCH ×2 (08:05→17:21)
[2021-03-02] MEDS: Furosemide 40 MG Tab PO SCH (08:05)
[2021-03-02] MEDS: Aspirin 81 MG Tab.EC PO SCH (08:05)
[2021-03-02] MEDS: Polyvinyl Alcohol 1.4% Ophth Soln 15 ML Bottle EYEBOTH SCH ×2 (08:06→22:30)
[2021-03-02] MEDS: Hydrochlorothiazide/Triamterene 25-37.5 Tab PO SCH (08:06)
[2021-03-02] MEDS: Enoxaparin 30 MG/0.3 ML Syringe SUBCUT SCH (08:10)
[2021-03-02] MEDS: Clopidogrel 75 MG Tab PO SCH (11:08)
[2021-03-02] MEDS: Lactulose Soln 10 GM/15 ML 30 ML UD Cup PO PRN (11:09)
[2021-03-02] MEDS: LORazepam 0.5 MG Tab PO PRN (20:15)
[2021-03-02] MEDS: atorvaSTATin 20 MG Tab PO SCH (20:15)
[2021-03-03] MEDS: Pantoprazole 40 MG Tab.CR PO SCH (05:04)
[2021-03-03] MEDS: Acetaminophen 325 MG Tab PO PRN (05:19)
[2021-03-03] MEDS: Furosemide 40 MG Tab PO SCH (09:49)
[2021-03-03] MEDS: Potassium Chloride 10 MEQ Tab.ER PO SCH ×2 (09:49→17:33)
[2021-03-03] MEDS: Aspirin 81 MG Tab.EC PO SCH (09:50)
[2021-03-03] MEDS: Calcium Carbonate/Vitamin D3 1250 MG-5 MCG Tab PO SCH ×2 (09:50→17:32)
[2021-03-03] MEDS: Hydrochlorothiazide/Triamterene 25-37.5 Tab PO SCH (09:51)
[2021-03-03] MEDS: Lactulose Soln 10 GM/15 ML 30 ML UD Cup PO PRN (09:51)
[2021-03-03] MEDS: Enoxaparin 30 MG/0.3 ML Syringe SUBCUT SCH (09:53)
[2021-03-03] MEDS: Polyvinyl Alcohol 1.4% Ophth Soln 15 ML Bottle EYEBOTH SCH ×2 (09:54→20:48)
[2021-03-03] MEDS: METAXALONE 800 MG PO PRN ×2 (10:00→20:48)
[2021-03-03] MEDS: Simethicone 80 MG Tab.Chew PO PRN (10:08)
[2021-03-03] MEDS: Albuterol/Ipratropium 3.0-0.5 MG/3 ML Neb Soln NEB PRN (11:58)
[2021-03-03] MEDS: Clopidogrel 75 MG Tab PO SCH (13:22)
[2021-03-03] MEDS: atorvaSTATin 20 MG Tab PO SCH (20:48)
[2021-03-04] MEDS: Pantoprazole 40 MG Tab.CR PO SCH (06:01)
[2021-03-04] MEDS: Docusate Sodium 100 MG Cap PO PRN (09:36)
[2021-03-04] MEDS: Hydrochlorothiazide/Triamterene 25-37.5 Tab PO SCH (09:37)
[2021-03-04] MEDS: Potassium Chloride 10 MEQ Tab.ER PO SCH ×2 (09:37→17:41)
[2021-03-04] MEDS: Calcium Carbonate/Vitamin D3 1250 MG-5 MCG Tab PO SCH ×2 (09:37→17:41)
[2021-03-04] MEDS: Furosemide 40 MG Tab PO SCH (09:38)
[2021-03-04] MEDS: Aspirin 81 MG Tab.EC PO SCH (09:38)
[2021-03-04] MEDS: Polyvinyl Alcohol 1.4% Ophth Soln 15 ML Bottle EYEBOTH SCH ×2 (09:39→21:45)
[2021-03-04] MEDS: Enoxaparin 30 MG/0.3 ML Syringe SUBCUT SCH (09:39)
[2021-03-04] MEDS: LORazepam 0.5 MG Tab PO PRN (09:40)
[2021-03-04] MEDS: Lactulose Soln 10 GM/15 ML 30 ML UD Cup PO PRN (09:40)
[2021-03-04] MEDS: Lactulose Soln 10 GM/15 ML 30 ML UD Cup PO SCH (13:08)
[2021-03-04] MEDS: Clopidogrel 75 MG Tab PO SCH (13:08)
[2021-03-04] MEDS: atorvaSTATin 20 MG Tab PO SCH (21:45)
[2021-03-05] MEDS: LORazepam 0.5 MG Tab PO PRN (03:11)
[2021-03-05] MEDS: Pantoprazole 40 MG Tab.CR PO SCH (05:25)
[2021-03-05] MEDS: Calcium Carbonate/Vitamin D3 1250 MG-5 MCG Tab PO SCH ×2 (09:09→17:44)
[2021-03-05] MEDS: Furosemide 40 MG Tab PO SCH (09:09)
[2021-03-05] MEDS: Potassium Chloride 10 MEQ Tab.ER PO SCH ×2 (09:09→17:43)
[2021-03-05] MEDS: Docusate Sodium 100 MG Cap PO PRN (09:10)
[2021-03-05] MEDS: Enoxaparin 30 MG/0.3 ML Syringe SUBCUT SCH (09:10)
[2021-03-05] MEDS: Hydrochlorothiazide/Triamterene 25-37.5 Tab PO SCH (09:10)
[2021-03-05] MEDS: Lactulose Soln 10 GM/15 ML 30 ML UD Cup PO SCH (09:10)
[2021-03-05] MEDS: Aspirin 81 MG Tab.EC PO SCH (09:10)
[2021-03-05] MEDS: Polyvinyl Alcohol 1.4% Ophth Soln 15 ML Bottle EYEBOTH SCH ×2 (09:11→20:28)
[2021-03-05] MEDS: Clopidogrel 75 MG Tab PO SCH (12:29)
[2021-03-05] MEDS: Menthol/Methyl Salicylate 85 GM Tube TOP PRN (20:28)
[2021-03-05] MEDS: atorvaSTATin 20 MG Tab PO SCH (20:28)
[2021-03-05] MEDS: Acetaminophen 325 MG Tab PO PRN (23:50)
[2021-03-05] MEDS: METAXALONE 800 MG PO PRN (23:51)
[2021-03-06] MEDS: Pantoprazole 40 MG Tab.CR PO SCH (05:15)
[2021-03-06] MEDS: Calcium Carbonate/Vitamin D3 1250 MG-5 MCG Tab PO SCH (08:05)
[2021-03-06] MEDS: Aspirin 81 MG Tab.EC PO SCH (08:05)
[2021-03-06] MEDS: Hydrochlorothiazide/Triamterene 25-37.5 Tab PO SCH (08:05)
[2021-03-06] MEDS: Furosemide 40 MG Tab PO SCH (08:05)
[2021-03-06] MEDS: Lactulose Soln 10 GM/15 ML 30 ML UD Cup PO SCH ×2 (08:06→08:10)
[2021-03-06] MEDS: Enoxaparin 30 MG/0.3 ML Syringe SUBCUT SCH ×2 (08:06→08:09)
[2021-03-06] MEDS: Potassium Chloride 10 MEQ Tab.ER PO SCH (08:06)
[2021-03-06] MEDS: Polyvinyl Alcohol 1.4% Ophth Soln 15 ML Bottle EYEBOTH SCH (08:10)
[2021-03-06 08:40] VITALS: BP 101/67; PULSE 94
[2021-03-06] MEDS: LORazepam 0.5 MG Tab PO PRN (08:47)
[2021-03-06] MEDS: Ondansetron 4 MG Tab.DIS PO PRN (08:47)
--- NOTE | 2021-03-06 10:05 | PCM.DCSUM1 ---
Discharge Summary - Hospital Course Free Text/Narrative:: 75-year-old woman with multiple comorbidities who presented with generalized weakness, inability to get out of bed and take care of herself; initially was in acute care then transferred to swing bed for further pt/ot 1. 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 old cva MRI showed no cute cva on this admission MRA showed no stenosis cont statin cont asa and plavix for 21 days then plavix alone control bp, follow BS 3. Numerous ecchymosis and skin lesions, secondary to failure to thrive and poor mobility, anti-Platelet meds, lovenox injections resolving 4 . Chronic kidney disease III. follow periodically Avoid any nephrotoxins. 5. Impaired glucose tolerance in the setting of morbid obesity -A1c 5.9 follow periodically 6. Leukocytosis - trending down. Pt is afebrile. follow CBC periodically. 7. recent admission for GI Bleed she was treated in [place] reviewed records EGD and colonoscopy did not find malignancy treat constipation aggressively Diagnosis: Stroke: No - Discharge Data Discharge Date: 03/06/21 Discharge Disposition: Home, Self-Care 01 Condition: Good - Referral to Home Health Primary Care Physician: PCP None - Discharge Diagnosis/Problem(s) (1) COPD (chronic obstructive pulmonary disease) SNOMED Code(s): 21080735 ICD Code: J44.9 - CHRONIC OBSTRUCTIVE PULMONARY DISEASE, UNSPECIFIED Status: Acute Current Visit: No (2) Cerebrovascular accident (CVA) SNOMED Code(s): 886318215 ICD Code: I63.9 - CEREBRAL INFARCTION, UNSPECIFIED Status: Acute Current Visit: No Problem Details: Recent CVA, unknown age Qualifiers: (3) Essential hypertension SNOMED Code(s): 48743842 ICD Code: I10 - ESSENTIAL (PRIMARY) HYPERTENSION Status: Acute Current Visit: No (4) Weakness SNOMED Code(s): 49677068 ICD Code: R53.1 - WEAKNESS Status: Acute Current Visit: No (5) Leukocytosis SNOMED Code(s): 466471409, 856363263 ICD Code: D72.829 - ELEVATED WHITE BLOOD CELL COUNT, UNSPECIFIED Status: Acute Current Visit: No - Patient Summary/Data Consults: Consultations 02/13/21 11:46 OT Evaluation and Treatment [CONS] Routine PT Evaluation and Treatment [CONS] Routine - Patient Instructions Diet: Heart Healthy Diet Activity: As Tolerated - Discharge Plan Home Medications: Home Meds Albuterol/Ipratropium [Combivent Respimat] 2 puff INH Q4HR PRN 08/12/14 [History] Calcium Carbonate/Vitamin D3 [Calcium 600 + Vit D 400] 1 tab PO BIDMEALS 08/12 [History] Glucosamine/D3/Boswellia [place] [Osteo Bi-Flex Caplet] 1 cap PO BID 08/12/14 [History] LORazepam [Ativan] 0.5 mg PO BID PRN 08/12/14 [History] Triamterene/Hydrochlorothiazid [Triamterene-HCTZ 37.5-25 MG] 1 cap PO DAILY 08/12/14 [History] Simethicone [Gas-X] 125 mg PO BID PRN 08/04/15 [History] Acetaminophen [Tylenol Extra Strength] 1,000 mg PO Q8H PRN 12/19/15 [History] Carboxymethylcellulose Sodium [Refresh Celluvisc] 1 each EYEBOTH BID PRN 12/19/15 [History] Mometasone Furoate [Nasonex] 2 spray NASBOTH DAILY PRN 12/19/15 [History] Oxygen 2 liter INH BEDTIME PRN 12/19/15 [History] Potassium Chloride [Klor-Con 10] 10 meq PO BIDMEALS 12/19/15 [History] Cholecalciferol (Vitamin D3) [Vitamin D3] 1,000 unit PO DAILY 02/07/21 [History] Metaxalone [Skelaxin] 800 mg PO TID PRN 02/07/21 [History] Pantoprazole Sodium [Protonix] 40 mg PO DAILY 02/07/21 [History] Clopidogrel [Plavix] 75 mg PO WITHLUNCH 02/10/21 [History] Aspirin [Halfprin] 81 mg PO WITHBREAKFAST tab.ec 02/11/21 [Rx] Furosemide [Lasix] 40 mg PO DAILY tablet 02/11/21 [Rx] Polyvinyl Alcohol [LiquiTears 1.4% Ophth Soln] 0 ml EYEBOTH BID bottle 02/11/21 [Rx] atorvaSTATin Calcium [Lipitor] 40 mg PO .QHS #30 tablet 02/11/21 [Rx] Oxygen Therapy Mode: Room Air - Discharge Summary/Plan Comment DC Time >30 min.: No Total # of Minutes for Discharge Time: 25 min - General Info Date of Service: 03/06/21 Functional Status: Reports: Ambulating (in room) - Review of Systems General: Reports: Weakness Pulmonary: Denies: Shortness of Breath Cardiovascular: Denies: Chest Pain, Edema Gastrointestinal: Reports: Constipation (resolved with enema) Genitourinary: Denies: Dysuria Psychiatric: Reports: Anxiety - Patient Data Vitals - Most Recent: Last Vital Signs Temp 98.7 F 03/06/21 08:39 Pulse 94 03/06/21 08:39 Resp 20 03/06/21 08:39 BP 101/67 03/06/21 08:39 Pulse Ox 92 L 03/06/21 08:39 Weight - Most Recent: 238 lb 12.8 oz I&O - Last 24 hours: Intake & Output 03/05/21 03/06/21 03/06/21 22:59 06:59 14:59 Intake Total 400 Balance 400 Med Orders - Current: Current Medications Acetaminophen (Acetaminophen 325 Mg Tab) 650 mg PO Q4H PRN PRN Reason: Pain (Mild 1-3)/fever Last Admin: 03/05/21 23:50 Dose: 650 mg Documented by: Albuterol/Ipratropium (Albuterol/Ipratropium 3.0-0.5 Mg/3 Ml Neb Soln) 3 ml NEB Q2H PRN PRN Reason: sob Last Admin: 03/03/21 11:58 Dose: 3 ml Documented by: Artificial Tears (Polyvinyl Alcohol 1.4% Ophth Soln 15 Ml Bottle) 0 ml EYEBOTH BID [facility] Last Admin: 03/06/21 08:10 Dose: 1 drop Documented by: Aspirin (Aspirin 81 Mg Tab.Ec) 81 mg PO WITHBREAKFAST [facility] Last Admin: 03/06/21 08:05 Dose: 81 mg Documented by: Atorvastatin Calcium (Atorvastatin 20 Mg Tab) 40 mg PO BEDTIME [facility] Last Admin: 03/05/21 20:28 Dose: 40 mg Documented by: Calcium Carbonate (Calcium Carbonate/Vitamin D3 1250 Mg-5 Mcg Tab) 1 tab PO BIDMEALS [facility] Last Admin: 03/06/21 08:05 Dose: 1 tab Documented by: Clopidogrel Bisulfate (Clopidogrel 75 Mg Tab) 75 mg PO WITHLUNCH [facility] Last Admin: 03/05/21 12:29 Dose: 75 mg Documented by: Docusate Sodium (Docusate Sodium 100 Mg Cap) 100 mg PO BID PRN PRN Reason: Constipation Last Admin: 03/05/21 09:10 Dose: 100 mg Documented by: Enoxaparin Sodium (Enoxaparin 30 Mg/0.3 Ml Syringe) 30 mg SUBCUT DAILY [facility] Last Admin: 03/06/21 08:09 Dose: Not Given Documented by: Fluticasone Propionate (Fluticasone Propionate Nasal Spring 16 Gm Bottle) 0 gm NASBOTH DAILY PRN PRN Reason: Congestion Last Admin: 03/03/21 09:59 Dose: 2 puff Documented by: Furosemide (Furosemide 40 Mg Tab) 40 mg PO DAILY [facility] Last Admin: 03/06/21 08:05 Dose: 40 mg Documented by: Lorazepam (Lorazepam 0.5 Mg Tab) 0.5 mg PO BID PRN PRN Reason: Anxiety Last Admin: 03/06/21 08:47 Dose: 0.5 mg Documented by: Methyl Salicylate (Menthol/Methyl Salicylate 85 Gm Tube) 1 gm TOP BID PRN PRN Reason: Pain (mild 1-3) Last Admin: 03/05/21 20:28 Dose: 1 applic Documented by: Metaxalone 800 Mg (Tab *Own Med*) 800 mg PO TID PRN PRN Reason: Muscle Spasm - Painful Last Admin: 03/05/21 23:51 Dose: 800 mg Documented by: Ondansetron HCl (Ondansetron 4 Mg Tab.Dis) 4 mg PO Q4H PRN PRN Reason: nausea, able to take PO Last Admin: 03/06/21 08:47 Dose: 4 mg Documented by: Pantoprazole Sodium (Pantoprazole 40 Mg Tab.Cr) 40 mg PO ACBRK [facility] Last Admin: 03/06/21 05:15 Dose: 40 mg Documented by: Potassium Chloride (Potassium Chloride 10 Meq Tab.Er) 20 meq PO BIDMEALS [facility] Last Admin: 03/06/21 08:06 Dose: 20 meq Documented by: Simethicone (Simethicone 80 Mg Tab.Chew) 80 mg PO Q6H PRN PRN Reason: Gas Last Admin: 03/03/21 10:08 Dose: 80 mg Documented by: Temazepam (Temazepam 15 Mg Cap) 15 mg PO BEDTIME PRN PRN Reason: Sleep Last Admin: 03/01/21 20:39 Dose: 15 mg Documented by: Triamterene/Hydrochlorothiazide (Hydrochlorothiazide/Triamterene 25-37.5 Tab) 1 each PO DAILY [facility] Last Admin: 03/06/21 08:05 Dose: 1 each Documented by: Discontinued Medications Acetaminophen (Acetaminophen 500 Mg Tab) 1,000 mg PO Q8H PRN PRN Reason: Pain (mild 1-3) Last Admin: 02/13/21 09:04 Dose: 1,000 mg Documented by: Azithromycin (Azithromycin 250 Mg Tab) 500 mg PO ONETIME ONE Stop: 02/13/21 12:31 Last Admin: 02/13/21 13:15 Dose: 500 mg Documented by: Azithromycin (Azithromycin 250 Mg Tab) 250 mg PO DAILY [facility] Stop: 02/17/21 09:01 Last Admin: 02/17/21 08:34 Dose: 250 mg Documented by: Heparin Sodium (Porcine) (Heparin Sodium 5,000 Units/Ml Vial) 5,000 units SUBCUT Q8HR [facility] Last Admin: 02/24/21 05:55 Dose: 5,000 units Documented by: Ceftriaxone Sodium 1 gm/ (Sodium Chloride) 50 mls @ 100 mls/hr IV Q24H [facility] Last Infusion: 02/17/21 09:56 Dose: Infused Documented by: Lactulose (Lactulose Soln 10 Gm/15 Ml 30 Ml Ud Cup) 20 gm PO ONETIME PRN PRN Reason: Constipation Last Admin: 03/02/21 11:09 Dose: 20 gm Documented by: Lactulose (Lactulose Soln 10 Gm/15 Ml 30 Ml Ud Cup) 20 gm PO DAILY PRN PRN Reason: Constipation Last Admin: 03/04/21 09:40 Dose: 20 gm Documented by: Lactulose (Lactulose Soln 10 Gm/15 Ml 30 Ml Ud Cup) 20 gm PO DAILY [facility] Stop: 03/06/21 09:01 Last Admin: 03/06/21 08:10 Dose: Not Given Documented by: Non-Formulary Medication (Albuterol/Ipratropium [Combivent Respimat]) 2 puff INH Q4HR PRN PRN Reason: Wheezing Potassium Chloride (Potassium Chloride 10 Meq Tab.Er) 10 meq PO BIDMEALS [facility] Last Admin: 02/13/21 09:02 Dose: 10 meq Documented by: Potassium Chloride (Potassium Chloride 10 Meq Tab.Er) 40 meq PO ONETIME ONE Stop: 02/12/21 13:01 Last Admin: 02/12/21 14:33 Dose: 40 meq Documented by: Potassium Chloride (Potassium Chloride 10 Meq Tab.Er) 40 meq PO ONETIME ONE Stop: 02/13/21 16:01 Last Admin: 02/13/21 16:19 Dose: 40 meq Documented by: Potassium Chloride (Potassium Chloride 10 Meq Tab.Er) 40 meq PO ONETIME ONE Stop: 02/15/21 09:36 Last Admin: 02/15/21 11:33 Dose: 40 meq Documented by: Sodium Chloride (Sodium Chloride 0.9% 10 Ml Syringe) 10 ml FLUSH ASDIRECTED PRN PRN Reason: IV Use Last Admin: 02/17/21 09:56 Dose: 10 ml Documented by: - Exam General: Reports: Alert, Oriented Neck: Reports: Supple Lungs: Reports: Normal Respiratory Effort, Decreased Breath Sounds Cardiovascular: Reports: Regular Rate, Regular Rhythm GI/Abdominal Exam: Normal Bowel Sounds, Soft, Non-Tender Extremities: No Pedal Edema Psy/Mental Status: Reports: Alert, Normal Affect, Anxious
--- NOTE | 2021-03-06 10:32 | PCM.SN.2 ---
- Free Text/Narrative Note: Addendum to discharge summary: patient would benefit from a front wheeled walker for weakness and gait instability
[2021-03-06] MEDS: Clopidogrel 75 MG Tab PO SCH (12:27)
== END 2021-03-06 13:15 | disposition home or self-care (01) | DRG 948 ==
LOC: DL.MS 14:34
PROVIDERS: ADMIT Internal Medicine; ATTEND Hospitalist
DX: R53.81 Other malaise (principal); Z68.42 Body mass index [BMI] 45.0-49.9, adult; E66.01 Morbid (severe) obesity due to excess calories; R62.7 Adult failure to thrive; N18.30 Chronic kidney disease, stage 3 unspecified; R73.02 Impaired glucose tolerance (oral); D72.829 Elevated white blood cell count, unspecified; J44.9 Chronic obstructive pulmonary disease, unspecified; I12.9 Hypertensive chronic kidney disease with stage 1 through stage 4 chronic kidney disease, or unspecified chronic kidney disease; K21.9 Gastro-esophageal reflux disease without esophagitis; M19.90 Unspecified osteoarthritis, unspecified site; M79.7 Fibromyalgia; M06.9 Rheumatoid arthritis, unspecified; F41.9 Anxiety disorder, unspecified; F32.A Depression, unspecified; Z86.73 Personal history of transient ischemic attack (TIA), and cerebral infarction without residual deficits; Z88.1 Allergy status to other antibiotic agents; Z88.0 Allergy status to penicillin; Z88.8 Allergy status to other drugs, medicaments and biological substances; Z79.82 Long term (current) use of aspirin; Z79.899 Other long term (current) drug therapy; I25.2 Old myocardial infarction; Z98.49 Cataract extraction status, unspecified eye
CPT/HCPCS: 36415; 71045; 80048; 81001; 83735; 85025; 87040; 87086; 94640; 97110-GO; 97110-GP; 97116-GP; 97162-GP; 97166-GO; 97530-GO; 97530-GP; A9270-GY; J0696; J1644; J1650; J7620-GY

== ENCOUNTER 2024-03-17 12:24 | Inpatient (IN) | payer MEDICARE ==
[2024-03-17 13:13] LABS: BASOPHILS PERCENT AUTO 0.3 % (0.0-1.0); EOSINOPHILS PERCENT AUTO 0.3 % (1.0-3.0); HEMATOCRIT 50.7 % (37.0-47.0); HEMOGLOBIN 16.1 g/dL (12.0-16.0); LYMPHOCYTES PERCENT AUTO 9.3 % (20.5-50.1); MEAN CORPUSCULAR HEMOGLOBIN 30.1 pg (27.0-34.0); MEAN CORPUSCULAR HGB CONC 31.8 g/dL (33.0-35.0); MEAN CORPUSCULAR VOLUME 94.8 fL (80-100); MONOCYTES PERCENT AUTO 7.9 % (2-8); NEUTROPHILS PERCENT AUTO 82.2 % (42.2-75.2); PLATELET COUNT,PLT 358 10^3/uL (150-450); RED BLOOD CELL COUNT 5.35 10^6/uL (4.2-5.4); WHITE BLOOD CELL COUNT,WBC 15.8 10^3/uL (5.0-10.0)
[2024-03-17 13:32] LABS: ALANINE AMINOTRANSFERASE,ALT 25 U/L (14-59); ALBUMIN 3.1 g/dL (3.4-5.0); ALKALINE PHOSPHATASE 116 U/L (46-116); ANION GAP 13.3 mEq/L (7-13); ASPARTATE AMNIOTRANSFERASE,AST 18 U/L (15-37); BILIRUBIN TOTAL 1.2 mg/dL (0.2-1.0); BLOOD UREA NITROGEN,BUN 18 mg/dL (7-18); BUN/CREATININE RATIO 14.4 (No establ ref range); CALCIUM 9.6 mg/dL (8.5-10.1); CARBON DIOXIDE,CO2 30 mmol/L (21-32); CHLORIDE,CL 101 mmol/L (98-107); CREATININE 1.25 mg/dL (0.55-1.02); GLUCOSE RANDOM 142 mg/dL (70-99); POTASSIUM,K 3.3 mmol/L (3.5-5.1); PROTEIN TOTAL,TP 7.8 g/dL (6.4-8.2); SODIUM,NA 141 mmol/L (136-145)
[2024-03-17 13:37] LABS: A/G RATIO 0.66; ESTIMATED GFR 44 mL/min (>=60); ETHANOL BLOOD MEDICAL < 3 mg/dL (0)
[2024-03-17 13:50] LABS: LACTIC ACID 2.1 mmol/L (0.4-2.0)
[2024-03-17] MEDS: Sodium Chloride 0.9% 1,000 ML IV ONE (13:51)
[2024-03-17] MEDS: Potassium Chloride 10 MEQ Tab.ER PO ONE (14:09)
[2024-03-17] MEDS: Sodium Chloride 0.9% 2,000 ML IV ONE (14:46)
[2024-03-17 14:52] LABS: APPEARANCE,URINE CLEAR (CLEAR); BILIRUBIN,URINE NEGATIVE (NEGATIVE); COLOR,URINE YELLOW (YELLOW); GLUCOSE,URINE NEGATIVE (NEGATIVE); KETONES,URINE NEGATIVE (NEGATIVE); LEUKOCYTE ESTERASE,URINE NEGATIVE (NEGATIVE); NITRITE,URINE NEGATIVE (NEGATIVE); OCCULT BLOOD,URINE NEGATIVE (NEGATIVE); PROTEIN,URINE TRACE (NEGATIVE); UROBILINOGEN,URINE 0.2 mg/dL (0.2-1.0)
[2024-03-17 14:53] LABS: AMPHETAMINES,URINE NEGATIVE (NEGATIVE); BARBITURATES,URINE NEGATIVE (NEGATIVE); BENZODIAZEPINE,URINE NEGATIVE (NEGATIVE); MDMA (ECSTASY), URINE NEGATIVE (NEGATIVE); METHADONE,URINE NEGATIVE (NEGATIVE); METHAMPHETAMINES,URINE NEGATIVE (NEGATIVE); OPIATES,URINE NEGATIVE (NEGATIVE); OXYCODONE,URINE NEGATIVE (NEGATIVE); PHENCYCLIDINE,URINE NEGATIVE (NEGATIVE); TCA,URINE NEGATIVE (NEGATIVE)
[2024-03-17 15:08] LABS: AMORPHOUS SEDIMENT,URINE FEW /HPF (NOT SEEN); BACTERIA,URINE FEW /HPF (0-FEW/HPF); EPITHELIAL CELLS,URINE MODERATE /HPF (NOT SEEN); GRANULAR CASTS,URINE RARE; MUCUS,URINE FEW /LPF (NOT SEEN); RBC,URINE 0-5 /HPF (0-5); WBC,URINE 0-5 /HPF (0-5/HPF)
[2024-03-17] MEDS: methylPREDNISolone Sodium Succinate 125 MG/2 ML SDV IVPUSH ONE (15:13)
[2024-03-17] MEDS: Famotidine 20 MG/2 ML SDV IVPUSH ONE (15:13)
[2024-03-17] MEDS: diphenhydrAMINE 50 MG/ML SDV IVPUSH ONE (15:13)
[2024-03-17] MEDS ORDERED: HYDROmorphone 0.5 MG/0.5 ML Syringe IVPUSH PRN (15:18)
[2024-03-17] MEDS ORDERED: Naloxone 2 MG/2 ML Syringe IVPUSH PRN (15:18)
[2024-03-17] MEDS ORDERED: Albuterol/Ipratropium 3.0-0.5 MG/3 ML Neb Soln NEB PRN (15:18)
[2024-03-17] MEDS ORDERED: Magnesium Hydroxide 400 MG/5 ML Susp 30 ML Cup PO PRN (15:18)
[2024-03-17] MEDS ORDERED: Polyethylene Glycol 3350 Powder 17 GM Packet PO PRN (15:18)
[2024-03-17] MEDS ORDERED: Bisacodyl 5 MG Tab PO PRN (15:18)
[2024-03-17] MEDS ORDERED: Ondansetron 4 MG/2 ML SDV IVPUSH PRN (15:18)
[2024-03-17 15:25] LABS: C-REACTIVE PROTEIN 1.28 ng/dL (<=0.50)
[2024-03-17] MEDS ORDERED: OXYGEN INH PRN (20:58)
[2024-03-17] MEDS: atorvaSTATin 20 MG Tab PO SCH (22:25)
[2024-03-18 07:23] LABS: ALBUMIN 2.2 g/dL (3.4-5.0); BUN/CREATININE RATIO 15.9 (No establ ref range); CALCIUM 8.7 mg/dL (8.5-10.1); CREATININE 0.88 mg/dL (0.55-1.02); EST CRCL DRUG DOSING (CG) 39.76 mL/min; MAGNESIUM 1.9 mg/dL (1.8-2.4); PROTEIN TOTAL,TP 6.2 g/dL (6.4-8.2)
[2024-03-18 07:39] LABS: A/G RATIO 0.55
[2024-03-18 07:41] LABS: HEMATOCRIT 45.4 % (37.0-47.0); HEMOGLOBIN 14.3 g/dL (12.0-16.0); MEAN CORPUSCULAR HEMOGLOBIN 29.8 pg (27.0-34.0); MEAN CORPUSCULAR HGB CONC 31.5 g/dL (33.0-35.0); MEAN CORPUSCULAR VOLUME 94.6 fL (80-100); PLATELET COUNT,PLT 274 10^3/uL (150-450)
[2024-03-18 07:55] LABS: BASOPHILS PERCENT AUTO 0.4 % (0.0-1.0); EOSINOPHILS PERCENT AUTO 1.1 % (1.0-3.0); LYMPHOCYTES PERCENT AUTO 17.8 % (20.5-50.1); MONOCYTES PERCENT AUTO 9.8 % (2-8); NEUTROPHILS PERCENT AUTO 70.9 % (42.2-75.2)
[2024-03-18 08:48] LABS: EOSINOPHILS PERCENT MAN 2 % (1-3); LYMPHOCYTES PERCENT MAN 19 % (20-50); MONOCYTES PERCENT MAN 10 % (2-8); SEG NEUTROPHILS PERCENT MAN 69 % (42-75)
[2024-03-18] MEDS: Pantoprazole 40 MG Tab.CR PO SCH (10:30)
[2024-03-18] MEDS: Enoxaparin 40 MG/0.4 ML Syringe SUBCUT SCH (10:30)
[2024-03-18] MEDS: Calcium Carbonate/Vitamin D3 1250 MG-5 MCG Tab PO SCH (10:30)
[2024-03-18] MEDS: Aspirin 81 MG Tab.EC PO SCH (10:30)
[2024-03-18] MEDS: [UNRECOGNIZED DRUG - OTHER] PO SCH (12:21)
[2024-03-18] MEDS: D3 PO SCH (12:21)
[2024-03-18] MEDS: GLUCOSAMINE PO SCH (12:21)
[2024-03-18] MEDS: Clopidogrel 75 MG Tab PO SCH (12:35)
[2024-03-18] MEDS: Acetaminophen/HYDROcodone 325-10 MG Tab PO PRN (12:52)
[2024-03-18] MEDS: Melatonin 3 MG Tab PO PRN (20:34)
[2024-03-19] MEDS: Acetaminophen 325 MG Tab PO PRN (05:23)
[2024-03-20 07:28] VITALS: BP 164/94; PULSE 77
[2024-03-20 11:05] LABS: HEMOGLOBIN A1C 5.7 % (<5.7)
[2024-03-24] MEDS ORDERED: Ergocalciferol (Vitamin D2) 1.25 MG Cap PO SCH (09:10)
== END 2024-03-20 10:56 | disposition swing bed (61) | DRG 683 ==
LOC: DL.ED 12:24 → UNDOADMIN 14:34 → DL.MS 14:34
PROVIDERS: ADMIT Internal Medicine; ATTEND Internal Medicine
DX: N17.9 Acute kidney failure, unspecified (principal); E87.20 Acidosis, unspecified; Z68.41 Body mass index [BMI] 40.0-44.9, adult; R53.1 Weakness; E83.52 Hypercalcemia; H54.7 Unspecified visual loss; I10 Essential (primary) hypertension; A41.9 Sepsis, unspecified organism; I12.9 Hypertensive chronic kidney disease with stage 1 through stage 4 chronic kidney disease, or unspecified chronic kidney disease; N18.30 Chronic kidney disease, stage 3 unspecified; M79.7 Fibromyalgia; F41.9 Anxiety disorder, unspecified; F32.A Depression, unspecified; N18.9 Chronic kidney disease, unspecified; F15.90 Other stimulant use, unspecified, uncomplicated; E11.65 Type 2 diabetes mellitus with hyperglycemia; E88.810 Metabolic syndrome; M06.9 Rheumatoid arthritis, unspecified; E66.813 Obesity, class 3; Z74.09 Other reduced mobility; E86.0 Dehydration; E87.6 Hypokalemia; J44.89 Other specified chronic obstructive pulmonary disease; K21.9 Gastro-esophageal reflux disease without esophagitis; Z79.899 Other long term (current) drug therapy; Z79.82 Long term (current) use of aspirin; Z88.0 Allergy status to penicillin; E66.9 Obesity, unspecified; Z88.1 Allergy status to other antibiotic agents; Z88.8 Allergy status to other drugs, medicaments and biological substances; I25.2 Old myocardial infarction; Z86.73 Personal history of transient ischemic attack (TIA), and cerebral infarction without residual deficits; Z79.02 Long term (current) use of antithrombotics/antiplatelets; Z90.89 Acquired absence of other organs; Z98.890 Other specified postprocedural states; Z85.42 Personal history of malignant neoplasm of other parts of uterus
CPT/HCPCS: 36415; 70450; 71045; 80053; 80305; 80307; 81001; 82306; 82550; 82947; 83605; 83735; 84145; 84439; 84443; 84484; 85025; 86140; 87040; 93005; 93010; 96360; 99285 ×2; A9270; J7030; 83036; 97110-GO; 97110-GP; 97161-GP; 97166-GO; 97530-GO; 97530-GP; 99223; 99232; 99238; J0457; J1200; J1650; J2919; J3490

== ENCOUNTER 2024-03-20 10:19 | Inpatient (IN) | payer MEDICARE ==
[2024-03-20] MEDS ORDERED: Albuterol/Ipratropium 3.0-0.5 MG/3 ML Neb Soln NEB PRN (10:36)
[2024-03-20] MEDS ORDERED: Naloxone 2 MG/2 ML Syringe IVPUSH PRN (10:36)
[2024-03-20] MEDS: Clopidogrel 75 MG Tab PO SCH (13:16)
[2024-03-20] MEDS: Acetaminophen 325 MG Tab PO PRN (14:24)
[2024-03-20] MEDS: Calcium Carbonate/Vitamin D3 1250 MG-5 MCG Tab PO SCH (17:28)
[2024-03-20] MEDS: Melatonin 3 MG Tab PO PRN (21:19)
[2024-03-20] MEDS: atorvaSTATin 20 MG Tab PO SCH (21:19)
[2024-03-20] MEDS: Acetaminophen/HYDROcodone 325-10 MG Tab PO PRN (21:19)
[2024-03-20] MEDS: Polyethylene Glycol 3350 Powder 17 GM Packet PO PRN (21:28)
[2024-03-21] MEDS: diphenhydrAMINE 50 MG/ML SDV IVPUSH ONE (00:31)
[2024-03-21] MEDS: Aspirin 81 MG Tab.EC PO SCH (08:03)
[2024-03-21] MEDS: Pantoprazole 40 MG Tab.CR PO SCH (08:03)
[2024-03-21] MEDS: Bisacodyl 5 MG Tab PO PRN (08:04)
[2024-03-21] MEDS: Enoxaparin 40 MG/0.4 ML Syringe SUBCUT SCH (08:05)
[2024-03-21] MEDS: Magnesium Hydroxide 400 MG/5 ML Susp 30 ML Cup PO PRN (17:15)
[2024-03-23] MEDS ORDERED: Flumazenil 0.1 MG/ML 5 ML MDV IVPUSH PRN (00:26)
[2024-03-23] MEDS: LORazepam 2 MG/ML SDV IVPUSH STA (00:37)
[2024-03-23] MEDS: Ziprasidone Mesylate 20 MG Vial IM ONE (00:54)
[2024-03-23 06:58] LABS: ALBUMIN 2.3 g/dL (3.4-5.0); ANION GAP 9.3 mEq/L (7-13); BUN/CREATININE RATIO 12.2 (No establ ref range); CALCIUM 8.9 mg/dL (8.5-10.1); CREATININE 0.98 mg/dL (0.55-1.02); EST CRCL DRUG DOSING (CG) 35.7 mL/min; POTASSIUM,K 3.3 mmol/L (3.5-5.1); PROTEIN TOTAL,TP 6.2 g/dL (6.4-8.2)
[2024-03-23 07:05] LABS: A/G RATIO 0.59
[2024-03-23] MEDS: Potassium Chloride 10 MEQ Tab.ER PO ONE (09:50)
[2024-03-23] MEDS: Temazepam 15 MG Cap PO PRN (21:15)
[2024-03-24] MEDS: Ergocalciferol (Vitamin D2) 1.25 MG Cap PO SCH ×2 (10:03→15:27)
[2024-03-24] MEDS: Nystatin Topical Powder 60 GM Bottle TOP SCH (20:31)
[2024-03-24] MEDS ORDERED: hydrOXYzine HCl 25 MG Tab PO PRN (20:48)
[2024-03-24] MEDS: Bacitracin/Neomycin/Polymyxin B Oint 28.4 GM Tube TOP SCH (21:27)
[2024-03-25] MEDS: guaiFENesin 600 MG Tab.ER PO STA (10:49)
[2024-03-25] MEDS: guaiFENesin 600 MG Tab.ER PO SCH (13:23)
[2024-03-26] MEDS: Hydrochlorothiazide/Triamterene 25-37.5 Tab PO SCH (08:31)
[2024-03-26 09:43] VITALS: BP 116/56; PULSE 77
== END 2024-03-26 10:56 | disposition home or self-care (01) | DRG 948 ==
LOC: DL.MS 10:38
PROVIDERS: ADMIT Internal Medicine; ATTEND Internal Medicine
DX: R53.1 Weakness (principal); Z74.1 Need for assistance with personal care; H54.7 Unspecified visual loss; J44.89 Other specified chronic obstructive pulmonary disease; J45.909 Unspecified asthma, uncomplicated; J44.9 Chronic obstructive pulmonary disease, unspecified; M79.7 Fibromyalgia; K21.9 Gastro-esophageal reflux disease without esophagitis; F32.A Depression, unspecified; F41.9 Anxiety disorder, unspecified; N18.30 Chronic kidney disease, stage 3 unspecified; F15.90 Other stimulant use, unspecified, uncomplicated; D72.829 Elevated white blood cell count, unspecified; M06.9 Rheumatoid arthritis, unspecified; E66.813 Obesity, class 3; I12.9 Hypertensive chronic kidney disease with stage 1 through stage 4 chronic kidney disease, or unspecified chronic kidney disease; Z74.09 Other reduced mobility; Z87.440 Personal history of urinary (tract) infections; I25.2 Old myocardial infarction; Z86.73 Personal history of transient ischemic attack (TIA), and cerebral infarction without residual deficits; Z88.1 Allergy status to other antibiotic agents; Z88.0 Allergy status to penicillin; Z88.8 Allergy status to other drugs, medicaments and biological substances; Z79.82 Long term (current) use of aspirin; Z79.02 Long term (current) use of antithrombotics/antiplatelets; Z79.899 Other long term (current) drug therapy; Z68.39 Body mass index [BMI] 39.0-39.9, adult; Z90.89 Acquired absence of other organs; Z98.890 Other specified postprocedural states
CPT/HCPCS: 36415; 80053; 82947; 83735; 97110-GO; 97110-GP; 97161-GP; 97165-GO; 97530-GO; A9270-GY; J1200; J1650; J2060; J3486; J3490

== ENCOUNTER 2024-09-21 09:29 | Emergency (ER) | payer MEDICARE ==
[2024-09-21 09:59] LABS: BASOPHILS PERCENT AUTO 0.4 % (0.0-1.0); EOSINOPHILS PERCENT AUTO 1.9 % (1.0-3.0); HEMATOCRIT 44.5 % (37.0-47.0); LYMPHOCYTES PERCENT AUTO 15.4 % (20.5-50.1); MEAN CORPUSCULAR HEMOGLOBIN 29.7 pg (27.0-34.0); MEAN CORPUSCULAR HGB CONC 31.5 g/dL (33.0-35.0); MEAN CORPUSCULAR VOLUME 94.3 fL (80-100); MONOCYTES PERCENT AUTO 8.9 % (2-8); NEUTROPHILS PERCENT AUTO 73.4 % (42.2-75.2); PLATELET COUNT,PLT 315 10^3/uL (150-450); RED BLOOD CELL COUNT 4.72 10^6/uL (4.2-5.4); WHITE BLOOD CELL COUNT,WBC 10.6 10^3/uL (5.0-10.0)
[2024-09-21] MEDS: Iopamidol 755 Mg/ML 100 ML Bottle IVPUSH ONE (10:00)
[2024-09-21 10:16] LABS: O2 DELIVERY DEVICE ROOM AIR
[2024-09-21 10:17] LABS: BASE EXCESS VENOUS 5.5 mmol/l ((-2)-(+3)); BICARBONATE,VENOUS 32 mmol/l (19-25); O2 SATURATION VENOUS 35.1 % (60-80); PCO2 VENOUS 58 mmHg (41-51); PH,VENOUS 7.37 (7.31-7.41); PO2 VENOUS 27 mmHg (35-42)
[2024-09-21 10:34] LABS: PROTHROMBIN TIME 10.5 SEC (9.0-12.0); PTT,PARTIAL THROMBOPLSTIN TIME 26.2 SEC (22.0-34.0)
[2024-09-21 10:40] LABS: ALANINE AMINOTRANSFERASE,ALT 19 U/L (14-59); ALBUMIN 2.5 g/dL (3.4-5.0); ALKALINE PHOSPHATASE 104 U/L (46-116); ANION GAP 10.9 mEq/L (7-13); ASPARTATE AMNIOTRANSFERASE,AST 17 U/L (15-37); BILIRUBIN TOTAL 1.1 mg/dL (0.2-1.0); BLOOD UREA NITROGEN,BUN 24 mg/dL (7-18); BUN/CREATININE RATIO 20.3 (No establ ref range); CALCIUM 9.2 mg/dL (8.5-10.1); CARBON DIOXIDE,CO2 31 mmol/L (21-32); CHLORIDE,CL 101 mmol/L (98-107); CREATININE 1.18 mg/dL (0.55-1.02); GLUCOSE RANDOM 112 mg/dL (70-99); MAGNESIUM 1.9 mg/dL (1.8-2.4); POTASSIUM,K 3.9 mmol/L (3.5-5.1); PROTEIN TOTAL,TP 6.8 g/dL (6.4-8.2); SODIUM,NA 139 mmol/L (136-145)
[2024-09-21 10:41] LABS: A/G RATIO 0.58; ESTIMATED GFR 47 mL/min (>=60)
[2024-09-21 11:03] VITALS: BP 138/49; PULSE 66
== END 2024-09-21 11:52 ==
LOC: DL.ED 09:29
DX: R40.0 Somnolence (principal); I12.9 Hypertensive chronic kidney disease with stage 1 through stage 4 chronic kidney disease, or unspecified chronic kidney disease; N18.9 Chronic kidney disease, unspecified; J44.89 Other specified chronic obstructive pulmonary disease; E66.9 Obesity, unspecified; K21.9 Gastro-esophageal reflux disease without esophagitis; Z79.899 Other long term (current) drug therapy; Z79.82 Long term (current) use of aspirin; Z88.0 Allergy status to penicillin; Z88.1 Allergy status to other antibiotic agents; Z88.8 Allergy status to other drugs, medicaments and biological substances
CPT/HCPCS: 36415; 70450; 70496; 70498; 80053; 82803; 82947; 83735; 84484; 85025; 85610; 85730; 99283; 99285; Q9967

== ENCOUNTER 2025-03-21 08:50 | Emergency (ER) | payer MEDICARE ==
[2025-03-21 10:53] VITALS: BP 138/73; PULSE 61
== END 2025-03-21 10:44 ==
LOC: DL.ED 08:50
DX: S70.02XA Contusion of left hip, initial encounter (principal); J44.89 Other specified chronic obstructive pulmonary disease; M19.90 Unspecified osteoarthritis, unspecified site; I12.9 Hypertensive chronic kidney disease with stage 1 through stage 4 chronic kidney disease, or unspecified chronic kidney disease; N18.9 Chronic kidney disease, unspecified; E66.9 Obesity, unspecified; K21.9 Gastro-esophageal reflux disease without esophagitis; Z88.1 Allergy status to other antibiotic agents; Z88.8 Allergy status to other drugs, medicaments and biological substances; Z88.0 Allergy status to penicillin; Z79.899 Other long term (current) drug therapy; Z79.01 Long term (current) use of anticoagulants; Z90.89 Acquired absence of other organs; Z79.82 Long term (current) use of aspirin; Z79.51 Long term (current) use of inhaled steroids; W01.198A Fall on same level from slipping, tripping and stumbling with subsequent striking against other object, initial encounter
CPT/HCPCS: 73502; 99284; A9270